=== PATIENT | female | born 1995 | race Caucasian/White ===

== ENCOUNTER 2020-01-18 13:27 | Emergency (ER) | payer OTHER, SELFPAY ==
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
[2020-01-18 13:32] VITALS: BP 122/73; PULSE 87; RESP 18; TEMP 36.6; O2SAT 100
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
[2020-01-18] MEDS: KETOROLAC (*BKC) 60 MG/2 ML VIAL IM (15:36)
[2020-01-18] MEDS: predniSONE 20 MG TABLET 60 MG PO (15:40)
== END 2020-01-18 16:30 | disposition home or self-care (01) ==
PROVIDERS: Emergency Provider General Practice
DX: S16.1XXA Strain of muscle, fascia and tendon at neck level, initial encounter (principal); S29.012A Strain of muscle and tendon of back wall of thorax, initial encounter; S39.012A Strain of muscle, fascia and tendon of lower back, initial encounter; F41.9 Anxiety disorder, unspecified; F32.9 Major depressive disorder, single episode, unspecified; Z87.442 Personal history of urinary calculi; V49.40XA Driver injured in collision with unspecified motor vehicles in traffic accident, initial encounter
CPT/HCPCS: 71046; 72110; 72125; 96372; 99284; J1885; J7512

== ENCOUNTER 2021-05-11 19:09 | Emergency (ER) | payer OTHER, SELFPAY ==
[2021-05-11 19:14] VITALS: BP 125/85; PULSE 60; RESP 20; TEMP 36.8; O2SAT 100
[2021-05-11 19:28] LABS: Basophils Absolute Auto 0.1 K/mm3 (0.0-0.1); Basophils Percent Auto 0.5 % (0.2-1.2); Hematocrit 42.2 % (37.0-47.0); Hemoglobin 14.7 g/dL (12.0-15.0); Immature Granulocyte Absolute 0.03 K/mm3 (0.00-0.031); Immature Granulocyte Percent A 0.3 % (0-0.5); Lymphocytes Absolute Auto 0.84 K/mm3 (0.9-3.2); Lymphocytes Percent Auto 8.1 % (18.3-44.2); Mean Corpuscular HGB Conc 34.8 g/dl (32-36); Mean Corpuscular Hemoglobin 31.7 pg (26-34); Mean Corpuscular Volume 91.1 fl (80-100); Mean Platelet Volume 10.7 fl (7.4-10.4); Monocytes Absolute Auto 0.3 K/mm3 (0.1-0.6); Monocytes Percent Auto 2.6 % (2.6-8.5); Neutrophils Absolute Auto 9.2 K/mm3 (1.3-6.7); Neutrophils Percent Auto 88.5 % (45.5-73.1); Platelet Count Result 289 k/mm3 (150-375); Red Blood Count 4.63 M/mm3 (4.2-5.4); Red Cell Distribution Width 13.1 % (11.5-14.5); White Blood Count 10.4 K/mm3 (4.5-10.0)
[2021-05-11 19:40] LABS: Alanine Aminotransferase 12 U/L (4-35); Albumin Level 4.7 g/dL (3.5-5.1); Alkaline Phosphatase 103 U/L (38-126); Anion Gap 11 mmol/L (8-16); Aspartate Amino Transferase 27 U/L (14-36); Bilirubin,Total 0.7 mg/dL (0.2-1.3); Blood Urea Nitrogen 11 mg/dL (7-17); Calcium 9.9 mg/dL (8.4-10.2); Carbon Dioxide 19 mmol/L (22-30); Chloride 107 mmol/L (98-107); Estimated CRCL calculation 96 ml/min; Estimated Glomerular Filt Rate > 60; Glucose 149 mg/dL (65-105); Lipase 87 U/L (23-300); Potassium 3.7 mmol/L (3.4-5.0); Sodium 137 mmol/L (137-145)
--- NOTE | 2021-05-11 20:10 | PC.NURSE ---
Pt. father up to triage stating I need to speak to a doctor PAO. RN asked individual if he needed to be seen by a doctor. Pt. father states No I need to talk to a doctor or nurse in private. RN informed pt. father that he is speaking with an RN. Pt. father then states My daughter is out in the waiting room slumped over, passed out in a chair and needs to be seen. I think she has been hanging with the wrong crowd. Pt. pulled back to triage bay and vitals were reassessed by triage tech. VS were within normal limits however, pt. was slower to respond but still acting appropriately during reassessment. Pt. able to walk to triage bay, and offer arm for BP.
[2021-05-11 20:12] VITALS: BP 138/82; PULSE 97; RESP 18; TEMP 36.4; O2SAT 100
--- NOTE | 2021-05-11 21:35 | PC.NURSE ---
Pt. amb to intake and informed children's ministries director that she is leaving. pt. states My dad is making me go. Pt. ambulated out of facility with steady gait, no obvious signs of distress, skin pink warm and dry.
== END 2021-05-11 21:52 | disposition left against medical advice (07) ==
PROVIDERS: Emergency Provider Emergency Medicine
DX: R11.2 Nausea with vomiting, unspecified (principal)
CPT/HCPCS: 36415; 80053; 83690; 85025; 99199

== ENCOUNTER 2021-05-13 20:04 | Observation (INO) | payer OTHER, SELFPAY ==
[2021-05-13] VITALS (17 sets, daily range): BP systolic 138–155; BP diastolic 72–100; PULSE 50–73; RESP 14–25; TEMP 36.7–36.8; O2SAT 93–100; BMI 18.7
--- NOTE | ~2021-05-13 | CT_ITS ---
EXAMINATION: CT abdomen pelvis w con DATE: 05/13/2021 21:32 INDICATION: Lower abdominal pain. Elevated lipase. TECHNIQUE: Computed tomography (CT) of the abdomen and pelvis was performed without intravenous contr ast. Automated exposure control and iterative reconstruction technique were employed. Exam dose: 175 .64 mGy-cm total exam DLP. COMPARISON: 11/04/2019 and 08/26/2017 CT abdomen pelvis examination FINDINGS: Normal heart size. No pericardial or pleural effusion. The lung bases are clear of infiltra te or consolidation. 6 mm hepatic cyst. The gallbladder is present. Normal splenic size. There is high density fluid and/or soft tissue fat infiltration along the posterior margin of the lef t hepatic lobe and medial gastric and pancreatic body and tail margins, suggesting pancreatitis. No splenic, pancreatic, adrenal or renal space occupying mass lesion is detected. No bile duct or pancreatic duct dilatation. No urinary tract calculus or hydroureteronephrosis. Normal caliber of the abdominal aorta. No intraperitoneal or retroperitoneal or pelvic mass lesion or adenopathy or ascites. Urinary bladder, uterus and adnexal areas are unremarkable. [No bowel obstruction. Normal appendix. No intraperitoneal free air.] IMPRESSION: Mild pancreatitis suggested Reviewed, dictated and finalized at Location A. Reviewed, dictated and finalized at location A. IMPRESSION: Mild pancreatitis suggested
[2021-05-13 20:22] LABS: Basophils Absolute Auto 0.1 K/mm3 (0.0-0.1); Basophils Percent Auto 0.6 % (0.2-1.2); Eosinophils Percent Auto 0.1 % (0-4.4); Hematocrit 51.4 % (37.0-47.0); Hemoglobin 17.2 g/dL (12.0-15.0); Immature Granulocyte Absolute 0.04 K/mm3 (0.00-0.031); Immature Granulocyte Percent A 0.4 % (0-0.5); Lymphocytes Absolute Auto 1.89 K/mm3 (0.9-3.2); Lymphocytes Percent Auto 17.5 % (18.3-44.2); Mean Corpuscular HGB Conc 33.5 g/dl (32-36); Mean Corpuscular Hemoglobin 31.6 pg (26-34); Mean Corpuscular Volume 94.3 fl (80-100); Mean Platelet Volume 10.7 fl (7.4-10.4); Monocytes Absolute Auto 0.8 K/mm3 (0.1-0.6); Monocytes Percent Auto 7.6 % (2.6-8.5); Neutrophils Percent Auto 73.8 % (45.5-73.1); Platelet Count Result 334 k/mm3 (150-375); Red Blood Count 5.45 M/mm3 (4.2-5.4); Red Cell Distribution Width 13.2 % (11.5-14.5); White Blood Count 10.8 K/mm3 (4.5-10.0)
--- NOTE | 2021-05-13 20:28 | PC.NURSE ---
Pt. showed up asking to be taken back to a room. RN notified Pt. that per hospital policy there is only one visitor allowed back with each patient and that the pt. has a support person with them at this time. Pt. states What not even dad can go back? RN informed pt. that due to policy trading visitors out is also not allowed and that the pt. and her support person were also notified of that. pt. left ED.
[2021-05-13 20:32] LABS: Alanine Aminotransferase 14 U/L (4-35); Albumin Level 5.2 g/dL (3.5-5.1); Alkaline Phosphatase 97 U/L (38-126); Anion Gap 12 mmol/L (8-16); Aspartate Amino Transferase 38 U/L (14-36); Bilirubin,Total 0.8 mg/dL (0.2-1.3); Blood Urea Nitrogen 14 mg/dL (7-17); Carbon Dioxide 29 mmol/L (22-30); Chloride 98 mmol/L (98-107); Estimated CRCL calculation 66 ml/min; Estimated Glomerular Filt Rate > 60; Glucose 103 mg/dL (65-105); Lipase 605 U/L (23-300); Potassium 3.7 mmol/L (3.4-5.0); Sodium 139 mmol/L (137-145)
[2021-05-13] MEDS: LACTATED RINGERS 1,000 ML 999 ML IV CONT ×2 (20:39)
[2021-05-13] MEDS: ONDANSETRON INJ 4 MG/2 ML VIAL IV PUSH (20:39)
[2021-05-13 21:30] LABS: Add Urine Microscopic? YES; Appearance Urine Clear (Clear); Bacteria Urine Trace /hpf; Bilirubin Urine Negative (Negative); Blood Urine Negative (Negative); Color Urine Yellow (Yellow); Glucose Urine UA Negative (Negative); Ketones Urine Trace mg/dL (Negative); Leukocyte Esterase Ur Negative LEU/UL (Negative); Mucus Urine Moderate /lpf; Nitrate Urine Negative (Negative); Protein Urine Negative (Negative); RBC Urine 0-2 /hpf (0-2); Specific Grav Ur 1.019 (1.001-1.035); Squamous Epithelial Cell Urine Few /hpf (Few); Urobilinogen Urine Negative mg/dL (<2.0); WBC Urine 0-3 /hpf
--- NOTE | 2021-05-13 21:32 | ED.NAVMDI ---
HPI - Nausea/Vomiting/Diarrhea General Chief complaint: Nausea/Vomiting/Diarrhea Stated complaint: N/V Time Seen by Provider: 05/13/21 20:07 Source: patient and RN notes reviewed Mode of arrival: ambulatory Limitations: no limitations History of Present Illness HPI Narrative: This is a 25 year old female who presents for evaluation of nausea, vomiting and abdominal pain. She reports she developed intractable nausea and vomiting 2 days ago. She states she can not keep anything down. She also reports lower abdominal pain that has been constant, and her pain start not long after her nausea. She is unsure of fever. She denies diarrhea, fever, urinary symptoms. She reports having similar symptoms 1 month ago but she did pursue evaluation at that point. Related Data Home Medications Medication Instructions Recorded Confirmed clonazepam 0.5 mg PO DAILY 11/04/19 05/13/21 alprazolam 0.25 mg PO PRN 05/13/21 05/13/21 clonazepam 1 mg PO DAILY 05/13/21 05/13/21 sertraline 150 mg PO DAILY 05/13/21 05/13/21 tizanidine 4 mg PO PRN 05/13/21 05/13/21 Allergies Allergy/AdvReac Type Severity Reaction Status Date / Time No Known Allergies Allergy Verified 05/13/21 23:54 Review of Systems Review of Systems: All systems reviewed & are unremarkable except as noted in HPI and below PMFSH Past Medical History Medical History (Updated 05/13/21 @ 22:32 by Richa Henderson MD) Anxiety Depression Kidney stone Surgical History Surgical History No significant past surgical history Family History Family History (Updated 05/13/21 @ 23:23 by Berkley Lujan, FRACISCO) Father Depression Anxiety Social History Social History Smoking status: Current some day smoker Alcohol intake: never Substance use: never Gender identity (if verbalized by the patient): Female Spiritual care concerns: No Exam Const: General: alert Nutritional Appearance: thin Orientation/consciousness: patient oriented x3 Resp: Effort & Inspection: normal respiratory effort and no retractions Auscultation: clear to auscultation bilaterally Cardio: Rate: regular rate Rhythm: regular rhythm Heart sounds: no murmurs GI: GI Palp: Yes Soft to palpation, No Tenderness to palpation present (GI) and No Guarding due to palpation present (GI) Auscultation: normal bowel sounds Skin: Rashes: no rashes Neuro: General: patient oriented x3, moves all extremities and CN's II-XI intact bilaterally Psych: Mental Status: mental status grossly normal Affect: normal affect Course Reevaluation(s) Reevaluation #1: I have discussed with patient that she has been found to have pancreatitis. She denies recent alcohol use. She understands she will be admitted. Date: 05/13/21 Time: 22:30 Consultations Consultation #1: Dr. mcmillan accepts patient to hospitalist service for acute pancreatitis. Date: 05/13/21 Time: 22:31 Vital Signs Vital signs: Vital Signs Temperature 98.1 F 05/13/21 20:07 Pulse Rate 50 L 05/13/21 20:07 Respiratory Rate 18 05/13/21 20:07 Blood Pressure 138/92 H 05/13/21 20:07 Pulse Oximetry 99 05/13/21 20:07 Temperature 98.2 F 05/13/21 23:20 Pulse Rate 53 L 05/13/21 23:20 Respiratory Rate 16 05/13/21 23:20 Blood Pressure 145/89 H 05/13/21 23:20 Pulse Oximetry 100 05/13/21 23:20 MDM - Nausea/Vomiting/Diarrhea Medical Records Attestation: I reviewed the patient's medical records. Lab Data Attestation: I reviewed the patient's lab results. Result diagrams: 05/13/21 20:17 05/13/21 20:17 Labs: Lab Results 05/13/21 05/13/21 05/13/21 Range/Units 20:17 20:17 21:15 WBC 10.8 H (4.5-10.0) K/mm3 RBC 5.45 H (4.2-5.4) M/mm3 Hgb 17.2 H (12.0-15.0) g/dL Hct 51.4 H (37.0-47.0) % MCV 94.3 (80-100) fl MCH 31.6 (26-34) pg MCHC 33.5
[2021-05-13 21:41] LABS: Amphetamine Screen Urine Negative (Negative); Barbiturate Screen Urine Negative (Negative); Benzodiazepines Screen Urine Positive (Negative); Cannabinoid Screen Urine Positive (Negative); Cocaine Screen Urine Negative (Negative); Methadone Screen Urine Negative (Negative); Opiate Screen Urine Negative (Negative); Phencyclidine Screen Urine Negative (Negative)
--- NOTE | 2021-05-13 23:57 | ADMGEN ---
This patient, oTyin Tian, was admitted to Medical Room 347-. Patient/family oriented to hospital policies and general routines including ID bracelet, bed and alarms, visiting hours, pain management, procedures, bathroom and other care routines, personal items, smoking policy, room service/diet, and visiting hours. Information on how to activate the Rapid Response Team has been discussed. Patient/Family are encouraged to report perceived risks to care and to ask questions if they do not understand what they are told or what they should do.
[2021-05-14] MEDS: SODIUM CHLORIDE 0.9% IV 1,000 ML 150 ML IV CONT ×4 (00:21→20:17)
[2021-05-14] MEDS: ONDANSETRON INJ 4 MG/2 ML VIAL IV PUSH ×3 (02:40→12:04)
[2021-05-14] MEDS: MORPHINE SULFATE (*CRX) 4 MG/ML INJ 2 MG IV PUSH ×4 (03:20→21:03)
[2021-05-14 05:56] VITALS: BP 100/60; PULSE 70; RESP 16; TEMP 36.2; O2SAT 100
[2021-05-14 06:04] LABS: Basophils Percent Auto 0.5 % (0.2-1.2); Eosinophils Percent Auto 0.3 % (0-4.4); Hematocrit 40.4 % (37.0-47.0); Hemoglobin 13.6 g/dL (12.0-15.0); Immature Granulocyte Absolute 0.02 K/mm3 (0.00-0.031); Immature Granulocyte Percent A 0.3 % (0-0.5); Lymphocytes Absolute Auto 2.09 K/mm3 (0.9-3.2); Lymphocytes Percent Auto 27.5 % (18.3-44.2); Mean Corpuscular HGB Conc 33.7 g/dl (32-36); Mean Corpuscular Hemoglobin 31.6 pg (26-34); Mean Platelet Volume 10.7 fl (7.4-10.4); Monocytes Absolute Auto 0.6 K/mm3 (0.1-0.6); Monocytes Percent Auto 8.4 % (2.6-8.5); Neutrophils Absolute Auto 4.8 K/mm3 (1.3-6.7); Platelet Count Result 235 k/mm3 (150-375); Red Cell Distribution Width 12.9 % (11.5-14.5); White Blood Count 7.6 K/mm3 (4.5-10.0)
[2021-05-14 06:33] LABS: Alanine Aminotransferase 9 U/L (4-35); Albumin Level 3.6 g/dL (3.5-5.1); Alkaline Phosphatase 66 U/L (38-126); Anion Gap 5 mmol/L (8-16); Aspartate Amino Transferase 17 U/L (14-36); Bilirubin,Total 0.8 mg/dL (0.2-1.3); Blood Urea Nitrogen 9 mg/dL (7-17); Calcium 8.8 mg/dL (8.4-10.2); Carbon Dioxide 26 mmol/L (22-30); Chloride 106 mmol/L (98-107); Estimated CRCL calculation 80 ml/min; Estimated Glomerular Filt Rate > 60; Glucose 89 mg/dL (65-105); Lipase 86 U/L (23-300); Potassium 3.6 mmol/L (3.4-5.0); Sodium 137 mmol/L (137-145)
[2021-05-14] MEDS: FAMOTIDINE 20 MG/2 ML VIAL IV PUSH ×2 (09:57→20:11)
[2021-05-14] MEDS: SERTRALINE HCL 50 MG TABLET 150 MG PO (10:37)
[2021-05-14 11:31] VITALS: BMI 18.7
[2021-05-14] MEDS: clonazePAM (*CRX) 0.5 MG TABLET PO (12:25)
--- NOTE | 2021-05-14 12:30 | PM.IMHP ---
H&P: HPI History of Present Illness Date/Time: 05/14/21 12:00 Chief Complaint: Intractable vomiting Narrative: 05/14/21 1200 The supervising physician for this history and physical is Dr Golden. Toyin Tian is a 25yo F with history of anxiety and depression who presented to the ED for evaluation of intractable nausea, vomiting, and abdominal pain that began two days ago. She describes she is not able to keep any food or drink down. She describes a similar episode 1 month ago that lasted about 1 week when she was barely able to eat. She notes she has actually had around 4 similar episodes since December this year and in fact has unintentionally lost around 35 pounds in the last 5 months. She denies diarrhea or constipation. Her abdominal pain is constant and diffuse through the left side of her abdomen over to the right and towards her back. Worse with eating. CT abdomen/pelvis shows evidence of mild pancreatitis without other etiology to explain her symptoms. Lipase on arrival was elevated to 605, now improved to 86 this morning. Mild leukocytosis on arrival now resolved. She was admitted to the hospitalist service under observation status for further management of acute pancreatitis. So far she has been NPO overnight and has tried some clear liquids but had abdominal pain and nausea after trying just some soup broth. Vomited once this morning. She continues with constant abdominal pain at present. Review of Systems Review of Systems: All systems reviewed & are unremarkable except as noted in HPI and below PMFSH Past Medical History Medical History (Updated 05/14/21 @ 17:19 by Violeta Lindsay PA-C) Anxiety Depression Kidney stone Surgical History Surgical History No significant past surgical history Family History Family History (Updated 05/14/21 @ 17:11 by Violeta Lindsay PA-C) Father Depression Anxiety Grandparent Chronic diastolic CHF (congestive heart failure) End-stage renal disease on hemodialysis Social History Social History (Updated 05/14/21 @ 17:14 by Violeta Lindsay PA-C) Social History: Toyin lives at home by herself in [place]. 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 She reports occasional alcohol use around 1 drink per week or less. She smokes marijuana around 4 days per week regularly since the 7th grade. Denies other substance use. Her primary care provider is Dr. Phillip in [place], [place]. She designates her sister, Vanessa Tian, as her surrogate decision maker. Full code status. Smoking status: Current some day smoker Alcohol intake: current Drinks per week: 1 Substance use: current Substance use type: marijuana Other substance usage details: Smokes marijuana 4 days per week regularly since the 7th grade Living arrangements: alone Gender identity (if verbalized by the patient): Female Spiritual care concerns: No Meds Home Medications and Allergies Home Medications Medication Instructions Recorded Confirmed Type clonazepam 0.5 mg PO BID 11/04/19 05/14/21 History alprazolam 0.25 mg PO PRN 05/13/21 05/13/21 History clonazepam 1 mg PO DAILY 05/13/21 05/13/21 History sertraline 150 mg PO DAILY 05/13/21 05/13/21 History tizanidine 4 mg PO PRN 05/13/21 05/13/21 History Allergies Allergy/AdvReac Type Severity Reaction Status Date / Time No Known Allergies Allergy Verified 05/13/21 23:54 Vital Signs Last Vital Signs Temp 97.1 F L 05/14/21 14:00 Pulse 61 05/14/21 14:00 Resp 16 05/14/21 14:00 BP 103/58 L 05/14/21 14:00 Pulse Ox 100 05/14/21 14:00 Exam Narrative: Exam Narrative: General: Well-developed thin female resting supine in bed in no acute distress. HEENT: Normocephalic, atraumatic, EOMI, oropharynx clear without erythema or exudate. Neck: Supple. Chest: Lungs clear to auscultation all guevara. Respirations vida
[2021-05-14 14:00] VITALS: BP 103/58; PULSE 61; RESP 16; TEMP 36.2; O2SAT 100
[2021-05-14 20:00] VITALS: PULSE 63; RESP 18; O2SAT 100
[2021-05-14 20:15] VITALS: BP 108/65; PULSE 63; RESP 18; TEMP 36.6; O2SAT 100
[2021-05-14 20:28] VITALS: O2SAT 99
[2021-05-14] MEDS: HYDROcodone/acetaminophen (*CRX) 5-325 MG TABLET 1 TAB PO (22:39)
[2021-05-15 05:03] VITALS: BP 100/55; PULSE 54; RESP 18; TEMP 36.2; O2SAT 100
[2021-05-15] MEDS: MORPHINE SULFATE (*CRX) 4 MG/ML INJ 2 MG IV PUSH (05:15)
[2021-05-15] MEDS: SODIUM CHLORIDE 0.9% IV 1,000 ML 150 ML IV CONT ×2 (05:15→11:59)
[2021-05-15 06:20] LABS: Hematocrit 35.9 % (37.0-47.0); Hemoglobin 12.1 g/dL (12.0-15.0); Mean Corpuscular HGB Conc 33.7 g/dl (32-36); Mean Corpuscular Hemoglobin 31.8 pg (26-34); Mean Corpuscular Volume 94.2 fl (80-100); Mean Platelet Volume 10.9 fl (7.4-10.4); Platelet Count Result 182 k/mm3 (150-375); Red Blood Count 3.81 M/mm3 (4.2-5.4); Red Cell Distribution Width 12.8 % (11.5-14.5); White Blood Count 5.3 K/mm3 (4.5-10.0)
[2021-05-15 06:44] LABS: Anion Gap 6 mmol/L (8-16); Blood Urea Nitrogen 7 mg/dL (7-17); Calcium 8.7 mg/dL (8.4-10.2); Carbon Dioxide 25 mmol/L (22-30); Chloride 108 mmol/L (98-107); Estimated CRCL calculation 91 ml/min; Estimated Glomerular Filt Rate > 60; Glucose 87 mg/dL (65-105); Magnesium 1.8 mg/dL (1.6-2.3); Potassium 3.7 mmol/L (3.4-5.0); Sodium 139 mmol/L (137-145)
[2021-05-15] MEDS: SERTRALINE HCL 50 MG TABLET 150 MG PO (09:42)
[2021-05-15] MEDS: clonazePAM (*CRX) 0.5 MG TABLET PO (09:42)
[2021-05-15] MEDS: FAMOTIDINE 20 MG/2 ML VIAL IV PUSH (09:42)
[2021-05-15] MEDS: HYDROcodone/acetaminophen (*CRX) 5-325 MG TABLET 1 TAB PO (11:57)
[2021-05-15 14:00] VITALS: BP 105/57; PULSE 96; RESP 16; TEMP 36.3; O2SAT 92
--- NOTE | 2021-05-15 15:48 | PM.DS ---
DS: Admitting Diagnosis Admitting Diagnosis Admitting Diagnosis: Pancreatitis DS: Discharge Diagnosis Discharge Diagnosis (1) Acute pancreatitis: Code(s): K85.90 - Acute pancreatitis without necrosis or infection, unspecified Status: Acute Assessment and Plan: Date of Admission 05/13/21 Date of Discharge 05/15/21 Ms. Tian is a 25yo F with history of depression, anxiety, and regular marijuana use who presented to the ED for evaluation of abdominal pain. She describes diffuse abdominal pain, nausea, vomiting for 2 days prior to arrival. She describes at least 4 similar episodes since December this year. Minimal alcohol use. CT suggests evidence of a mild pancreatitis. Lipase elevated to 605 on arrival, resolved to normal the following day. She was treated with supportive care to include bowel rest, IV hydration, antiemetics and pain control. Her pain was improved and she was hemodynamically stable for discharge 05/15/21. Discussed she may benefit from outpatient GI follow up given her duration of symptoms and recent unintentional weight loss. (2) Marijuana use: Code(s): F12.90 - Cannabis use, unspecified, uncomplicated Status: Acute Assessment and Plan: Patient describes he has smoked marijuana regularly at least 4 days per week since the 7th grade. Cessation encouraged as this could be contributing to cyclic vomiting episodes. She describes she would like to try quitting to see if this improves her symptoms. (3) Intractable vomiting with nausea: Code(s): R11.2 - Nausea with vomiting, unspecified Status: Acute Assessment and Plan: Contributing factors could include acute pancreatitis and/or cyclic vomiting. I have educated her regarding possible cannabis hyperemesis syndrome as well. Continue supportive care, see above. (4) Weight loss: Code(s): R63.4 - Abnormal weight loss Status: Acute Assessment and Plan: She describes an unintentional 35 lb weight loss in the last 5 months. This may be related to episodes described above, however I encouraged her to follow-up with a bus or truck garage mechanic on an outpatient basis in case she may benefit from an EGD. DS: Summary Hospital Course Hospital Course: See above Time Spent with Patient Time attestation: Total time spent providing and/or coordinating discharge services:35 minutes Exam Narrative: Exam Narrative: General: Well-developed thin female resting supine in bed in no acute distress. HEENT: Normocephalic, atraumatic, EOMI, oropharynx clear without erythema or exudate. Neck: Supple. Chest: Lungs clear to auscultation all guevara. Respirations even and nonlabored. Tolerating room air. Heart: Heart rate and rhythm regular with S1-S2. No murmur, rub, or gallop appreciated. Abdomen: Soft, nondistended, bowel sounds present. Diffuse tenderness to 4 quadrants without guarding. Skin: Warm, dry, no rashes or lesions noted. Tattoos to upper extremities. Extremities: Peripheral pulses intact. No edema, pain to palpation. Neurologic: Awake and alert; Answering questions appropriately. Speech is clear. No focal neurological deficits are noted. Psychiatric: Mood are normal. Pleasant and cooperative. DS: Data Data Completed and Pending Labs on day of discharge: Last Vital Signs Temp 97.4 F L 05/15/21 14:00 Pulse 96 05/15/21 14:00 Resp 16 05/15/21 14:00 BP 105/57 L 05/15/21 14:00 Pulse Ox 92 05/15/21 14:00 ITS Impressions Abdomen/Pelvis CT 05/13/21 21:54 IMPRESSION: Mild pancreatitis suggested Laboratory Tests 05/15/21 06:07 05/15/21 06:07 Discharge Plan Discharge Attending physician on discharge: Sanket Golden Consulting providers: Violeat Lindsay ; Linus Agarwal
== END 2021-05-15 15:51 | disposition home or self-care (01) ==
LOC: ANHED 22:32 → ANH3MED 22:44
PROVIDERS: Physician Assistant; Admitting Provider Internal Medicine; Emergency Provider General Practice; PCP Internal Medicine; Visit Provider Internal Medicine
DX: K85.90 Acute pancreatitis without necrosis or infection, unspecified (principal); F41.9 Anxiety disorder, unspecified; F32.9 Major depressive disorder, single episode, unspecified; Z87.442 Personal history of urinary calculi; F12.90 Cannabis use, unspecified, uncomplicated; R63.4 Abnormal weight loss
CPT/HCPCS: 36415; 74177; 80048; 80053; 80307; 81001; 81025; 83690; 83735; 84443; 85025; 85027; 96361; 96374; 96375; 96376; 99285; A9270; G0378; J0131; J2270; J2405; J7030; J7120; Q9967

== ENCOUNTER 2021-05-26 16:01 | Outpatient (CLI) | payer OTHER, SELFPAY ==
--- NOTE | ~2021-05-26 | US_ITS ---
EXAMINATION: US right upper quadrant DATE: 05/26/2021 16:20 INDICATION: Abdominal pain. TECHNIQUE: Multiple grayscale and Doppler ultrasound images of the abdomen were obtained. COMPARISON: CT abdomen and pelvis 05/13/2021 FINDINGS: Abdominal aorta is normal in caliber. Inferior vena cava is normal. The visualized portions of the head, body, and tail of the pancreas are normal. The liver is normal without focal lesion. Th ere is normal flow in main portal vein. The gallbladder is normal in size. No gallstones or gallbladd er wall thickening. There was no sonographic Carson sign. The common duct is normal and measures 4 mm . Right kidney is normal. IMPRESSION: 1. Normal right upper quadrant ultrasound. Reviewed, dictated and finalized at location A.
== END 2021-05-26 16:02 ==
DX: R10.9 Unspecified abdominal pain (principal)
CPT/HCPCS: 76705

== ENCOUNTER 2022-06-21 15:10 | Outpatient (CLI) | payer OTHER, SELFPAY ==
--- NOTE | ~2022-06-21 | US_ITS ---
EXAMINATION: US OB <=14 wk fetus w TV INDICATION: SPOTTING FIRST TRIMESTER TECHNIQUE: Sonography of the pelvis was performed by transabdominal and transvaginal techniques. COMPARISON: None. RESULT: LMP unknown. Uterus: - Orientation: Anteverted - Size: 10.4 x 6.1 x 6.1 cm - Myometrium: Homogeneous echogenicity. Cervical length 3.1 cm. Gestation: - Intrauterine gestational sac: Single present - Yolk sac: Present, not directly measured. - Embryo: Single present - [place] rump length: 0.9561 cm, corresponding gestational age 7 weeks, 0 days -Gestational heart rate: present 142 bpm -Subgestational hematoma: Absent Right ovary: - Size : 2.9 x 3.2 x 2.5 cm - Normal sonographic appearance with physiologic follicles. 1.6 cm simple cyst or dominant foll icle. Left ovary: - Size: 2.3 x 1.6 x 2.2 cm - Normal sonographic appearance with physiologic follicles. Pelvis free fluid: None. IMPRESSION: Single, live intrauterine gestation. Estimated Gestational Age: 7 weeks, 0 days by crown rump length. JAMES by ultrasound 02/07/2023. Reviewed, dictated and finalized at location K. IMPRESSION: Single, live intrauterine gestation. Estimated Gestational Age: 7 weeks, 0 days by crown rump length. JAMES by ultras ound 02/07/2023.
== END 2022-06-21 15:11 | disposition home or self-care (01) ==
PROVIDERS: Visit Provider Obstetrics & Gynecology Gynecology
DX: O26.851 Spotting complicating pregnancy, first trimester (principal); Z3A.01 Less than 8 weeks gestation of pregnancy
CPT/HCPCS: 76801; 76817

== ENCOUNTER 2022-09-15 14:56 | Outpatient (CLI) | payer OTHER, SELFPAY ==
--- NOTE | ~2022-09-15 | US_ITS ---
EXAMINATION: US OB /maternal detail DATE: 09/15/2022 16:26 INDICATION: anatomic survey. TECHNIQUE: Real-time ultrasound of the pelvis was performed. COMPARISON: Ultrasound 06/21/2022 FINDINGS: There is a single living fetus in variable presentation. The placenta is anterior. heart rate is 151 beats per minute (bpm). The amniotic fluid volume is subjectively normal. The following biometric data were obtained: Biparietal diameter (BPD): 4.4 cm; head circumference (HC): 16.6 cm; abdominal circumference (AC): 15 .4 cm; femur length (FL): 3.2 cm. These measurements are concordant. Estimated weight is 336 g +/- 50 g, which correlates with the 90th percentile when 02/07/23 is u sed as estimated date of delivery. As single measurements, these parameters are each equal to the following estimated gestational ages: BPD: 19 weeks 2 days. HC: 19 weeks 2 days. AC: 20 weeks 4 days. FL: 20 weeks 0 days. estimated gestational age based solely on measurements from this exam is 19 weeks 6 days +/- 1 weeks 3 days. The cerebral ventricles, cerebellum, cisterna magna, nuchal fold, lip, and visualized portions of the spine are normal. The nasal bone measures 6 mm. There is an echogenic focus in left ventricle of the heart. The diaphragm, stomach, kidneys, and bladder are normal. There are two umbilical arteries to yield a 3-vessel cord. The cord insertion is normal. IMPRESSION: 1. Single living fetus in variable presentation. 2. Estimated weight is 336 g +/- 50 g, which correlates with the 90th percentile when 02/07/23 is used as estimated date of delivery. This date was set by ultrasound on 06/21/22. 3. Intracardiac echogenic focus. Reviewed, dictated and finalized at location A. IMPRESSION: 1. Single living fetus in variable presentation. 2. Estimated weight is 336 g +/- 50 g, which correlates with the 90th pe rcentile when 02/07/23 is used as estimated date of delivery. This date was set by ultrasound on 06/21/22. 3. Intracardiac echogenic focus.
== END 2022-09-15 14:57 | disposition home or self-care (01) ==
LOC: ANHIMG 15:01
PROVIDERS: Visit Provider Advanced Practice Midwife
DX: Z36.9 Encounter for antenatal screening, unspecified (principal); Z3A.19 19 weeks gestation of pregnancy
CPT/HCPCS: 76805

== ENCOUNTER 2022-11-21 16:22 | Emergency (ER) | payer OTHER, SELFPAY ==
[2022-11-21 16:32] VITALS: BP 109/69; PULSE 93; RESP 18; TEMP 36.6; O2SAT 98
--- NOTE | 2022-11-21 17:28 | ED.URI ---
HPI - URI/Sore Throat General Chief Complaint: Upper Respiratory Infection Stated Complaint: cough, 29 weeks , dehydrated, weak Time Seen by Provider: 11/21/22 17:15 History of Present Illness HPI Narrative: Pt presents with fever, cough and body aches for 4 days. Pt has mild JIMÉNEZ. Pt has not been vomiting and has no abdominal pain. Pt is 27 weeks and has OB. Pt denies bleeding or discharge. Related Data Home Medications Medication Instructions Recorded Confirmed clonazepam 0.5 mg tablet 0.5 mg PO BID 11/04/19 05/14/21 alprazolam 0.25 mg tablet 0.25 mg PO PRN 05/13/21 05/13/21 clonazepam 0.5 mg tablet 1 mg PO DAILY 05/13/21 05/13/21 sertraline 100 mg tablet 150 mg PO DAILY 05/13/21 05/13/21 tizanidine 4 mg tablet 4 mg PO PRN 05/13/21 05/13/21 Allergies Allergy/AdvReac Type Severity Reaction Status Date / Time No Known Allergies Allergy Verified 11/21/22 17:06 Review of Systems Review of Systems: All systems reviewed & are unremarkable except as noted in HPI and below PMFSH Past Medical History Medical History (Updated 11/21/22 @ 17:42 by Yane Brown III, DO) Anxiety Depression Kidney stone Surgical History Surgical History No significant past surgical history Family History Family History (Updated 05/14/21 @ 17:11 by Violeta Lindsay PA-C) Father Depression Anxiety Grandparent Chronic diastolic CHF (congestive heart failure) End-stage renal disease on hemodialysis Social History Social History (Updated 05/14/21 @ 17:14 by Violeta Lindsay PA-C) Social History: Toyin lives at home by herself in [place]. 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 She reports occasional alcohol use around 1 drink per week or less. She smokes marijuana around 4 days per week regularly since the 7th grade. Denies other substance use. Her primary care provider is Dr. Phillip in [place], [place]. She designates her sister, Vanessa Tian, as her surrogate decision maker. Full code status. Smoking status: Current some day smoker Alcohol intake: current Drinks per week: 1 Substance use: current Substance use type: marijuana Other substance usage details: Smokes marijuana 4 days per week regularly since the 7th grade Gender identity (if verbalized by the patient): Female Spiritual care concerns: No Exam Const: General: healthy appearing Nutritional Appearance: well nourished Orientation/consciousness: patient oriented x3 Limitations: no limitations Course Vital Signs Vital signs: Vital Signs Temperature 97.8 F 11/21/22 16:32 Pulse Rate 93 11/21/22 16:32 Respiratory Rate 18 11/21/22 16:32 Blood Pressure 109/69 11/21/22 16:32 Pulse Oximetry 98 11/21/22 16:32 Oxygen Delivery Room Air 11/21/22 16:32 Temperature 97.8 F 11/21/22 16:32 Pulse Rate 93 11/21/22 16:32 Respiratory Rate 18 11/21/22 16:32 Blood Pressure 109/69 11/21/22 16:32 Pulse Oximetry 98 11/21/22 16:32 Oxygen Delivery Room Air 11/21/22 16:32 MDM - URI/Sore Throat Lab Data Labs: Lab Results 11/21/22 Range/Units 16:47 Influenza A (RT-PCR) Positive (Negative) Influenza B (RT-PCR) Negative (Negative) SARS-CoV-2 RNA (RT-PCR) Negative Discharge Plan Discharge Clinical Impression: Influenza A Patient Disposition: Home, Self-Care Condition: Improved Instructions: Antibiotic Form, Influenza (ED) Prescriptions: No Action clonazepam 0.5 mg tablet 0.5 mg PO BID tizanidine 4 mg Tablet 4 mg PO PRN clonazepam 0.5 mg tablet 1 mg PO DAILY sertraline 100 mg tablet 150 mg PO DAILY alprazolam 0.25 mg Tablet 0.25 mg PO PRN ondansetron 4 mg tablet,disintegrating 4 mg PO Q8H PRN (Reason: nausea and vomiting) Qty: 30 0RF pantoprazole 40 mg tablet,delayed release (DR/EC) 40 mg PO DAILY 28
[2022-11-21 17:29] LABS: Influenza A QL RT-PCR Positive (Negative); Influenza B QL RT-PCR Negative (Negative); SARS-CoV-2 RNA PCR Negative
[2022-11-21] MEDS: SODIUM CHLORIDE 0.9% IV 1,000 ML 999 ML IV CONT (17:44)
[2022-11-21] MEDS: ACETAMINOPHEN 500 MG TABLET 1000 MG PO (17:51)
[2022-11-21 18:57] VITALS: BP 103/63; PULSE 82; RESP 16; TEMP 36.4; O2SAT 96
== END 2022-11-21 18:59 | disposition home or self-care (01) ==
PROVIDERS: Emergency Provider Emergency Medicine; PCP Obstetrics & Gynecology Gynecology
DX: J10.1 Influenza due to other identified influenza virus with other respiratory manifestations (principal); Z20.822 Contact with and (suspected) exposure to COVID-19; O99.342 Other mental disorders complicating pregnancy, second trimester; F41.9 Anxiety disorder, unspecified; F32.A Depression, unspecified; Z3A.27 27 weeks gestation of pregnancy; Z87.442 Personal history of urinary calculi
CPT/HCPCS: 87636; 96360; 99283; A9270; J7030

== ENCOUNTER 2022-12-02 12:44 | Outpatient (CLI) | payer OTHER, SELFPAY ==
[2022-12-02 19:58] LABS: Hematocrit 33.8 % (37.0-47.0); Hemoglobin 11.7 g/dL (12.0-15.0)
[2022-12-02 20:12] LABS: Glucose 1 Hour PP 50gm Dose 109 mg/dL
[2022-12-02 20:32] LABS: Vitamin D 25 Hydroxy 35.3 ng/mL
[2022-12-02 20:52] LABS: HIV 1/2 Ab P24 Ag Result Negative (Negative)
== END 2022-12-02 12:45 | disposition home or self-care (01) ==
LOC: ANHGOSHLAB 12:48
PROVIDERS: PCP Obstetrics & Gynecology Gynecology; Visit Provider Advanced Practice Midwife
DX: Z36.9 Encounter for antenatal screening, unspecified (principal); E55.9 Vitamin D deficiency, unspecified; Z3A.00 Weeks of gestation of pregnancy not specified
CPT/HCPCS: 36415; 82306; 82947; 85014; 85018; 86703; G0432

== ENCOUNTER 2023-01-28 08:25 | Inpatient (IN) | payer OTHER, SELFPAY ==
[2023-01-28] VITALS (170 sets, daily range): BP systolic 90–185; BP diastolic 44–164; PULSE 50–266; RESP 15–17; TEMP 36.3–37.3; O2SAT 81–100; BMI 29.3
[2023-01-28 10:20] LABS: Basophils Absolute Auto 0.1 K/mm3 (0.0-0.1); Basophils Percent Auto 0.4 % (0.2-1.2); Eosinophils Percent Auto 0.1 % (0-4.4); Hematocrit 39.5 % (37.0-47.0); Hemoglobin 13.8 g/dL (12.0-15.0); Immature Granulocyte Absolute 0.13 K/mm3 (0.00-0.031); Immature Granulocyte Percent A 0.9 % (0-0.5); Lymphocytes Absolute Auto 1.27 K/mm3 (0.9-3.2); Lymphocytes Percent Auto 9.1 % (18.3-44.2); Mean Corpuscular HGB Conc 34.9 g/dl (32-36); Mean Corpuscular Volume 94.5 fl (80-100); Mean Platelet Volume 11.4 fl (7.4-10.4); Monocytes Absolute Auto 1.1 K/mm3 (0.1-0.6); Monocytes Percent Auto 8.1 % (2.6-8.5); Neutrophils Absolute Auto 11.4 K/mm3 (1.3-6.7); Neutrophils Percent Auto 81.4 % (45.5-73.1); Platelet Count Result 176 k/mm3 (150-375); Red Blood Count 4.18 M/mm3 (4.2-5.4); Red Cell Distribution Width 12.9 % (11.5-14.5)
--- NOTE | 2023-01-28 10:26 | WPDHPUPDATE1 ---
History and Physical Update Update Date/Time: 01/28/23 10:26 27 yo at 38w4d who presents in labor. Pt reports regular painful contractions. She denies any vaginal bleeding or leakage of fluid. History and Physical has been reviewed, including an updated exam of the patient. There are NO changes in the patient's condition. Risks, benefits, and alternatives have been discussed and questions answered. Patient agrees to proceed with procedure. A/P: admit to L&D routine admission orders Rh+ GBS+, will start abx FHT cat 1, continuous EFM pt desires epidural expectant management will augment as needed.
[2023-01-28] MEDS: LACTATED RINGERS 1,000 ML 125 ML IV CONT ×3 (10:27→16:07)
[2023-01-28] MEDS: AMPICILLIN 2 GM/NS 100 ML 2 GM/100 ML BAG IVPB ×2 (10:27→20:26)
[2023-01-28] MEDS: ONDANSETRON INJ 4 MG/2 ML VIAL IV PUSH (10:34)
[2023-01-28] MEDS: fentaNYL CITRATE INJ (*CRX) 100 MCG/2 ML VIAL 50 MCG IV PUSH ×2 (10:37→11:37)
[2023-01-28 11:17] LABS: Amphetamine Screen Urine Negative (Negative); Barbiturate Screen Urine Positive (Negative); Benzodiazepines Screen Urine Negative (Negative); Cannabinoid Screen Urine Negative (Negative); Cocaine Screen Urine Negative (Negative); Methadone Screen Urine Negative (Negative); Opiate Screen Urine Negative (Negative); Phencyclidine Screen Urine Negative (Negative)
[2023-01-28] MEDS: LACTATED RINGERS 1,000 ML 999 ML IV CONT (11:27)
--- NOTE | 2023-01-28 11:38 | WPDANESEPP ---
Anes - Eval Pre Procedure Procedure: labor epidural Date/Time: 01/28/23 11:38 Preop Diagnosis: labor pain Pre Op Diagnosis: Contractions Patient Data Age: 27 Gender: F Height: 1.7 m Weight: 85 kg Last Vital Signs Pulse 75 01/28/23 11:31 BP 111/77 01/28/23 11:31 Allergies Allergy/AdvReac Type Severity Reaction Status Date / Time No Known Allergies Allergy Verified 01/24/23 09:08 Home Medications Medication Instructions Recorded Confirmed Type sertraline 50 mg tablet 50 mg PO DAILY #90 tabs 01/11/23 01/28/23 Rx buspirone 5 mg tablet 5 mg PO BID 01/13/23 01/24/23 History prenat.vits,jayne,kgg-jkmo-eznof 1 tablet PO HS 01/13/23 01/24/23 History jmkqamirip-ykkqupoloedaj-tpukehuz 1 cap PO Q8H PRN headache 01/17/23 01/28/23 History 50 mg-300 mg-40 mg capsule (Fioricet) ondansetron HCl 4 mg tablet 4 mg PO Q8H 01/17/23 01/28/23 History Laboratory Tests 01/28/23 01/28/23 01/28/23 10:11 10:11 10:11 WBC 14.0 K/mm3 H K/mm3 (4.5-10.0) RBC 4.18 M/mm3 L M/mm3 (4.2-5.4) Hgb 13.8 g/dL g/dL (12.0-15.0) Hct 39.5 % % (37.0-47.0) MCV 94.5 fl fl (80-100) MCH 33.0 pg pg (26-34) MCHC 34.9 g/dl g/dl (32-36) RDW 12.9 % % (11.5-14.5) Plt Count 176 k/mm3 k/mm3 (150-375) MPV 11.4 fl H fl (7.4-10.4) Immature Gran % (Auto) 0.9 % H % (0-0.5) Neut % (Auto) 81.4 % H % (45.5-73.1) Lymph % (Auto) 9.1 % L % (18.3-44.2) Gentry % (Auto) 8.1 % % (2.6-8.5) Eos % (Auto) 0.1 % % (0-4.4) Baso % (Auto) 0.4 % % (0.2-1.2) Lymph # (Auto) 1.27 K/mm3 K/mm3 (0.9-3.2) Gentry # (Auto) 1.1 K/mm3 H K/mm3 (0.1-0.6) Eos # (Auto) 0.0 K/mm3 K/mm3 (0-0.3) Baso # (Auto) 0.1 K/mm3 K/mm3 (0.0-0.1) Abs Immat Gran (auto) 0.13 K/mm3 H K/mm3 (0.00-0.031) Absolute Neuts (auto) 11.4 K/mm3 H K/mm3 (1.3-6.7) Absolute Nucleated RBC 0.0 K/mm3 K/mm3 (0.0-0.012) Nucleated RBC % 0.0 % % (0.0-0.2) Urine Opiates Screen Urine Methadone Screen Ur Barbiturates Screen Ur Phencyclidine Scrn Ur Amphetamine Screen U Benzodiazepines Scrn Urine Cocaine Screen U Cannabinoids Screen RPR Pending Blood Type O Positive Antibody Screen Negative 01/28/23 10:51 WBC RBC Hgb Hct MCV MCH MCHC RDW Plt Count MPV Immature Gran % (Auto) Neut % (Auto) Lymph % (Auto) Gentry % (Auto) Eos % (Auto) Baso % (Auto) Lymph # (Auto) Gentry # (Auto) Eos # (Auto) Baso # (Auto) Abs Immat Gran (auto) Absolute Neuts (auto) Absolute Nucleated RBC Nucleated RBC % Urine Opiates Screen Negative (Negative) Urine Methadone Screen Negative (Negative) Ur Barbiturates Screen Positive A (Negative) Ur Phencyclidine Scrn Negative (Negative) Ur Amphetamine Screen Negative (Negative) U Benzodiazepines Scrn Negative (Negative) Urine Cocaine Screen Negative (Negative) U Cannabinoids Screen Negative (Negative) RPR Blood Type Antibody Screen Patient hx anesthesia problems: none Family hx anesthesia problems: none Results Review: All pre-operative results and documents have been reviewed as part of the pre-operative evaluation. [facility] Past Medical History Medical History Anxiety Depression Kidney stone Surgical History Surgical History History of removal of skin mole (~2016) No significant past surgical history Family History Family History (R
[2023-01-28] MEDS: AMPICILLIN 1 GM/NS 50 ML 1 GM/50 ML BAG IVPB ×2 (14:03→18:06)
[2023-01-28] MEDS: OXYTOCIN 30 UNITS/NS 500 ML 30 UNITS/500 ML BAG IV CONT (14:14)
[2023-01-28] MEDS: FAMOTIDINE 20 MG/2 ML VIAL IV PUSH (14:45)
[2023-01-28] MEDS: SODIUM CHLORIDE 0.9% IV 300 ML 600 ML I-UTERINE (17:49)
--- NOTE | 2023-01-28 20:25 | PM.OBPRVD ---
OB - Delivery Note Procedure Delivery date: 01/28/23 Procedure: Patient pushed for a spontaneous vaginal delivery. The fetus was delivered atraumatically and placed on the maternal abdomen. The cord was clamped and cut after 1 minute of life. The cord was double clamped and cut and a segment of cord was collected for cord gases. Cord blood was collected for blood type and Coomb's testing. The placenta delivered with manual extraction. The perineum was inspected and there was a 1st degree perineal laceration. There were bilateral labial lacerations. The lacerations was repaired with 3-0 vicryl in the usual fashion. The uterus was firm and good hemostasis was noted. The patient and fetus were stable in the delivery room. Induction method: None Delivery augmentation: Pitocin Delivery monitor: External FHT Route of delivery: Episiotomy description: None Laceration Description: Perineal - 1st Degree and Labial (bilateral) Delivery repair: vicryl Specimen: No Quantitative Blood Loss (ml): 300 Anesthesia type: Epidural Disposition: Floor () Complications: No immediate complications Baby Date of : 01/28/23 Time of : 19:45 Weeks of gestation at delivery: 38 gender: Male Weight (pounds): 7 Weight (ounces): 15 presentation: vertex position: Right Occiput Anterior Placenta delivery description: Spontaneous Cord Vessel Description: 3 Vessels score one minute: 8 score five minutes: 8 AMG Delivery Billing Delivery Delivery: Delivery Charge
[2023-01-28] MEDS: OXYTOCIN 30 UNITS/NS 500 ML 30 UNITS/500 ML BAG 125 UNITS IV CONT (20:26)
[2023-01-28] MEDS: IBUPROFEN 600 MG TABLET PO (21:42)
[2023-01-28] MEDS: BENZOCAINE 20% AER SPR (*SP) 56 GM CAN 1 SPRAY TOPICAL (21:43)
[2023-01-28] MEDS: WITCH HAZEL 40 PADS 1 PAD TOPICAL (21:43)
[2023-01-28] MEDS: ACETAMINOPHEN 325 MG TABLET 650 MG PO (23:04)
--- NOTE | 2023-01-29 00:55 | OBPPTRN ---
01/28/2023 at 2223 Patient transferred to post room #288 via wheelchair. Support person present. Patient oriented to unit, room, information board, and admission packet. Patient verbalizes understanding.
[2023-01-29] MEDS: IBUPROFEN 600 MG TABLET PO ×4 (04:38→22:01)
[2023-01-29 05:18] LABS: Hematocrit 36.3 % (37.0-47.0); Hemoglobin 12.5 g/dL (12.0-15.0)
[2023-01-29 07:00] VITALS: BP 108/61; PULSE 77; RESP 16; TEMP 36.9; O2SAT 97
[2023-01-29] MEDS: ACETAMINOPHEN 325 MG TABLET 650 MG PO (07:16)
--- NOTE | 2023-01-29 08:41 | WPDANLDPN2 ---
Anes-Prog Note L&D Date/Time: 01/29/23 08:41 Neuro status: Neuro function grossly intact. Cardiovascular status: normal Respiratory status: normal Airway patency: baseline Mental status: baseline Post-Op hydration status: normal Vital Signs: Last Vital Signs Temp 36.9 C 01/29/23 07:00 Pulse 77 01/29/23 07:00 Resp 16 01/29/23 07:00 BP 108/61 01/29/23 07:00 Pulse Ox 97 01/29/23 07:00 O2 Del Method Room Air 01/29/23 07:00 Pain score (VAS): 0 I/O: Intake & Output 01/28/23 01/29/23 01/29/23 23:59 07:59 15:59 Intake Total 2150 Output Total 413 Balance 1737 Post-procedural complaints: none Patient feedback: Patient satisfied with anesthetic care.
[2023-01-29] MEDS: busPIRone HCL 5 MG TABLET PO ×2 (09:28→16:28)
[2023-01-29] MEDS: DOCUSATE SODIUM 100 MG CAPSULE PO ×2 (09:28→16:28)
[2023-01-29] MEDS: SERTRALINE HCL 50 MG TABLET PO (09:28)
--- NOTE | 2023-01-29 10:52 | P.PNOB_ITS ---
OB - PN: Subj Subjective Date/time seen: 01/29/23 10:52 Patient comments: no complaints, pain well controlled and tolerating diet [place] feeding status: exclusively breast feeding Narrative: patient doing well this AM. No complaints. Pain is well controlled. She reports minimal bleeding. She is ambulating and voiding without difficulty. She is tolerating PO. She denies N/V, fever, chills. OB - PN: Obj Data Labs 01/29/23 05:06 Labs: Laboratory Results - last 24 hr 01/28/23 01/28/23 01/29/23 10:11 10:51 05:06 Hgb 12.5 Hct 36.3 L Urine Opiates Screen Negative Urine Methadone Screen Negative Ur Barbiturates Screen Positive A Ur Phencyclidine Scrn Negative Ur Amphetamine Screen Negative U Benzodiazepines Scrn Negative Urine Cocaine Screen Negative U Cannabinoids Screen Negative Blood Type O Positive Antibody Screen Negative OB - PN A/P Plan day: 1 Plan: routine care Comments: patient doing well H/H stable plan for circumcision today. risks, benefits, alternatives discussed continue routine care Time Spent With Patient Time: Total time spent is greater than 50% in coordination of care (as documented) at patient's floor/unit and/or counseling patient: Time with patient: less than 15 minutes Review of Systems Review of Systems: All systems reviewed & are unremarkable except as noted in HPI and below Exam Const: General: comfortable and no acute distress Resp: Effort & Inspection: normal respiratory effort Cardio: Rate: regular rate GI: GI Palp: Yes Soft to palpation and No Tenderness to palpation present (GI) Auscultation: normal bowel sounds Other: fundus firm and below umbilicus. Psych: Affect: normal affect
[2023-01-29] MEDS: HYDROcodone/acetaminophen (*CRX) 5-325 MG TABLET 1 TAB PO ×3 (11:23→23:14)
[2023-01-29 16:40] VITALS: BP 111/66; PULSE 71; RESP 16; TEMP 36.6
--- NOTE | 2023-01-29 17:34 | PC.NURSE ---
All charting by Pankaj Quiñones RN on 01/29/23 [id number] was performed by Hoda Huerta RN. Computer log in displayed Cristhian YAP and was unnoticed.
[2023-01-29] MEDS: MULTIVIT/MIN/PREN/FOL AC/IRON TABLET 1 TAB PO (23:15)
[2023-01-30] MEDS: IBUPROFEN 600 MG TABLET PO ×3 (04:05→16:05)
[2023-01-30] MEDS: HYDROcodone/acetaminophen (*CRX) 5-325 MG TABLET 1 TAB PO ×2 (06:56→16:18)
--- NOTE | 2023-01-30 07:57 | PM.OBDSVD ---
DS: Admitting Diagnosis Discharge Date 01/30/23 Admitting Diagnosis intrauterine at term DS: Discharge Diagnosis Discharge Diagnosis (1) : Code(s): Z34.90 - Encounter for supervision of normal , unspecified, unspecified trimester Status: Acute OB - DS: Summary OB Procedures : None OB Procedures Intrapartum: Spontaneous Vag Delivery OB Procedures: : None Status at Discharge Functional status at discharge: independent ambulation Overall status at discharge: patient is back to baseline Time Spent with Patient Time attestation: Total time spent providing and/or coordinating discharge services: Time spent: Less than 30 minutes Exam Const: General: comfortable and no acute distress Resp: Effort & Inspection: normal respiratory effort Auscultation: clear to auscultation bilaterally Cardio: Rate: regular rate GI: GI Palp: Yes Soft to palpation Auscultation: normal bowel sounds Other: Fundus firm below umbilicus Psych: Appearance: grossly normal Mental Status: mental status grossly normal Affect: normal affect DS: Data Data Completed and Pending Pending studies at discharge: Pending at discharge 01/28/23 20:04 Surgical [PTH] Routine Discharge Plan Discharge Attending physician on discharge: Les Davila Discharging Clinician: Les Davila Patient Disposition: Home, Self-Care Activity: as tolerated and pelvic rest Diet: regular Patient Instructions: Antibiotic Form, Vaginal Delivery (DC) Stand Alone Forms: General Discharge Information Follow-up/Referrals: Atif Mota MD [Physician] - Discharge Medications: New acetaminophen [Mapap (acetaminophen)] 325 mg Tablet 650 mg PO Q6H PRN (Reason: Mild Pain (1-3)) Qty: 30 0RF ibuprofen 600 mg Tablet 600 mg PO Q6H PRN (Reason: Cramping) Qty: 30 0RF Continued ondansetron HCl 4 mg tablet 4 mg PO Q8H pinjgyegic-sedztpciagbkm-zbvw [Fioricet] 50-300-40 mg capsule 1 cap PO Q8H PRN (Reason: headache) buspirone [BuSpar] 5 mg Tablet 5 mg PO BID #2 Tablet 1 tablet PO HS sertraline 50 mg tablet 50 mg PO DAILY Qty: 90 0RF Date of admission: 01/28/23 08:25 Primary Care Provider: Tammie Venegas Admitting Provider: Atif Mota Attending physician on admission: Atif Mota
[2023-01-30 08:00] VITALS: BP 111/80; PULSE 66; RESP 16; TEMP 36.7; O2SAT 98
[2023-01-30 08:12] LABS: Rapid Plasma Reagin Non-Reactive (NonReactive)
[2023-01-30] MEDS: MULTIVIT/MIN/PREN/FOL AC/IRON TABLET 1 TAB PO (08:15)
[2023-01-30] MEDS: SERTRALINE HCL 50 MG TABLET PO (08:15)
[2023-01-30] MEDS: DOCUSATE SODIUM 100 MG CAPSULE PO ×2 (08:15→16:05)
[2023-01-30] MEDS: busPIRone HCL 5 MG TABLET PO ×2 (08:15→16:05)
[2023-01-30] MEDS: ACETAMINOPHEN 325 MG TABLET 650 MG PO (11:39)
--- NOTE | 2023-01-30 14:20 | PC.NURSE ---
[id number] Introductions were made, then consulted with patient to assess needs related to . Mother led the conversation with her?plans to feed?her infant with combination feeding and the?experience so far. Resources provided for inpatient and outpatient services with the feeding sheet, mom/baby guide and name written on the white board. Mother voiced understanding of information and will call if there is a request for assistance. Encouraged understanding of the benefits of skin to skin (demonstrating unwrapping infant and placing upright on her chest), stimulating with massage touch, changing positions to encourage wakefulness, how to watch for early feeding cues, responsive feeding, feeding on demand (aiming for 8-12 times in 24 hours, about every 2-3 hours), milk production, building/maintaining a milk supply, duration of feeding, signs of adequate intake/output, collection, storage of expressed milk and how to record on the feeding sheet. Breast pump provided before this A.M. due to ineffective . Discussed pumping more consistently every 3 hours (8 times in 24 hours) 1-2 times at night to protect the milk supply. Resources used to facilitate learning were used with the visual handouts, tool, mom and baby guide. Mother voiced understanding of skin to skin, stimulating with massage touch, responsive feedings, talking to to encourage if it has been 2.5-3 hours since the start of the last , to call if infant does not latch, or if there is discomfort with . Resources provided for inpatient/outpatient with business card, feeding sheet and the mom/baby guide. Parents voiced understanding of information, demonstrated learning and will call if there is a request for assistance. Reported to the primary RN.
[2023-01-30] MEDS: WITCH HAZEL 40 PADS 1 PAD TOPICAL (16:05)
--- NOTE | 2023-01-30 18:00 | PC.NURSE ---
Patient a no care bed, infant staying another night.
[2023-01-31 09:54] VITALS: BP 116/76; PULSE 86; RESP 20; TEMP 36.9; O2SAT 97
== END 2023-01-30 18:02 | disposition home or self-care (01) | DRG 541 ==
LOC: ANHLDR 10:25 → ANHOB2 01-29 00:19
PROVIDERS: Admitting Provider Student in an Organized Health Care Education/Training Program; PCP Obstetrics & Gynecology Gynecology; Visit Provider Obstetrics & Gynecology
DX: O99.824 Streptococcus B carrier state complicating childbirth (principal); O73.0 Retained placenta without hemorrhage; O77.0 Labor and delivery complicated by meconium in amniotic fluid; O70.0 First degree perineal laceration during delivery; Z3A.38 38 weeks gestation of pregnancy; Z37.0 Single live birth
CPT/HCPCS: 36415; 80307; 84112; 85014; 85018; 85025; 86592; 86850; 86900; 86901; 88307; A9270; J0290; J2405; J2590; J2795; J3010; J7030; J7120

== ENCOUNTER 2023-06-12 16:57 | Outpatient (CLI) | payer OTHER, SELFPAY ==
[2023-06-12 17:32] LABS: Hematocrit 36.4 % (37.0-47.0); Hemoglobin 12.5 g/dL (12.0-15.0); Mean Corpuscular HGB Conc 34.3 g/dl (32-36); Mean Corpuscular Hemoglobin 32.6 pg (26-34); Mean Corpuscular Volume 94.8 fl (80-100); Mean Platelet Volume 10.7 fl (7.4-10.4); Platelet Count Result 233 k/mm3 (150-375); Red Blood Count 3.84 M/mm3 (4.2-5.4); Red Cell Distribution Width 12.4 % (11.5-14.5); White Blood Count 5.4 K/mm3 (4.5-10.0)
[2023-06-12 17:43] LABS: Alanine Aminotransferase 17 U/L (6-35); Albumin Level 4.2 g/dL (3.5-5.1); Alkaline Phosphatase 61 U/L (38-126); Anion Gap 5 mmol/L (8-16); Aspartate Amino Transferase 24 U/L (14-36); Bilirubin,Total 0.3 mg/dL (0.2-1.3); Blood Urea Nitrogen 10 mg/dL (7-17); Calcium 8.8 mg/dL (8.4-10.2); Carbon Dioxide 29 mmol/L (22-30); Chloride 103 mmol/L (98-107); Estimated Glomerular Filt Rate > 60; Glucose 77 mg/dL (65-110); Potassium 3.8 mmol/L (3.4-5.0); Sodium 137 mmol/L (137-145)
[2023-06-12 18:12] LABS: Thyroid Stimulating Hormone 0.729 uIU/mL (0.465-4.680)
[2023-06-12 18:58] LABS: Free T4 Free Thyroxine 0.89 ng/mL (0.78-2.19)
[2023-06-16 06:41] LABS: Thyroid Peroxidase Antibodies <1 IU/mL (<9)
== END 2023-06-12 16:58 | disposition home or self-care (01) ==
LOC: ANHLAB 16:59
PROVIDERS: PCP Obstetrics & Gynecology Gynecology; Visit Provider Obstetrics & Gynecology
DX: R23.2 Flushing (principal); R53.83 Other fatigue
CPT/HCPCS: 36415; 80053; 84439; 84443; 84481; 85027; 86376

== ENCOUNTER 2023-09-23 07:45 | Outpatient (CLI) | payer OTHER, SELFPAY ==
--- NOTE | ~2023-09-23 | MR_ITS ---
EXAMINATION: MR cervical spine wo con DATE: 09/23/2023 08:18 INDICATION: Cervical radiculopathy TECHNIQUE: Magnetic resonance imaging (MRI) of the cervical spine was performed without intravenous c ontrast. Sequences included sagittal T2-weighted FSE, sagittal T2-weighted FS FSE, sagittal T1-weight ed FSE, axial MERGE and axial T2-weighted FSE. COMPARISON: None FINDINGS: Bone alignment is normal. Vertebral body heights are normal. Bone marrow signal intensity is normal . Mild disc height loss at C5-C6 with annular fissure and small central disc extrusion with disc mate rial extending 2 mm caudal to the level of the superior endplate of C6. Remaining disc heights are no rmal. Cord signal intensity is normal. Cervical soft tissues are unremarkable. The following disc lev els are specifically discussed: C2-C3: The disc does not extend beyond the endplate margin. There is no uncovertebral joint osteoarth ritis. There is minimal bilateral facet joint osteoarthritis. There is no neural foraminal stenosis. There is no central canal stenosis. C3-C4: The disc does not extend beyond the endplate margin. There is mild left uncovertebral joint os teoarthritis. There is mild bilateral facet joint osteoarthritis. There is no neural foraminal stenos is. There is no central canal stenosis. C4-C5: Disc is minimally bulging. There is mild right uncovertebral joint osteoarthritis. There is mi nimal bilateral facet joint osteoarthritis. There is no neural foraminal stenosis. There is no centra l canal stenosis. C5-C6: Very small central disc extrusion. There is minimal bilateral uncovertebral joint osteoarthrit is. There is mild left and minimal right facet joint osteoarthritis. There is no neural foraminal myranda nosis. There is minimal central canal stenosis. C6-C7: Disc is mildly bulging. There is mild bilateral uncovertebral joint osteoarthritis. There is m ild bilateral facet joint osteoarthritis. There is no neural foraminal stenosis. There is minimal belgica tral canal stenosis. C7-T1: The disc does not extend beyond the endplate margin. There is no uncovertebral joint osteoarth ritis. There is minimal bilateral facet joint osteoarthritis. There is no neural foraminal stenosis. There is no central canal stenosis. IMPRESSION: 1. Minimal to mild cervical spondylosis most notable for annular fissure and very small central disc extrusion at C5-C6. Reviewed, dictated and finalized at location A. IMPRESSION: 1. Minimal to mild cervical spondylosis most notable for annular fissure and ve ry small central disc extrusion at C5-C6.
== END 2023-09-23 07:46 | disposition home or self-care (01) ==
PROVIDERS: PCP Family Medicine; Visit Provider Physical Medicine & Rehabilitation Pain Medicine
DX: M43.02 Spondylolysis, cervical region (principal)
CPT/HCPCS: 72141

== ENCOUNTER 2023-11-29 17:25 | Outpatient (CLI) | payer OTHER, SELFPAY ==
[2023-11-29 17:44] LABS: Basophils Absolute Auto 0.1 K/mm3 (0.0-0.1); Basophils Percent Auto 1.2 % (0.2-1.2); Eosinophils Percent Auto 0.5 % (0-4.4); Hematocrit 39.9 % (37.0-47.0); Immature Granulocyte Absolute 0.01 K/mm3 (0.00-0.031); Immature Granulocyte Percent A 0.2 % (0-0.5); Lymphocytes Absolute Auto 2.01 K/mm3 (0.9-3.2); Lymphocytes Percent Auto 35.3 % (18.3-44.2); Mean Corpuscular HGB Conc 32.6 g/dl (32-36); Mean Corpuscular Hemoglobin 30.3 pg (26-34); Mean Platelet Volume 11.6 fl (7.4-10.4); Monocytes Absolute Auto 0.5 K/mm3 (0.1-0.6); Monocytes Percent Auto 8.3 % (2.6-8.5); Neutrophils Absolute Auto 3.1 K/mm3 (1.3-6.7); Neutrophils Percent Auto 54.5 % (45.5-73.1); Platelet Count Result 251 k/mm3 (150-375); Red Blood Count 4.29 M/mm3 (4.2-5.4); Red Cell Distribution Width 12.1 % (11.5-14.5); White Blood Count 5.7 K/mm3 (4.5-10.0)
[2023-11-29 21:19] LABS: Alanine Aminotransferase 15 U/L (6-35); Albumin Level 4.1 g/dL (3.5-5.1); Alkaline Phosphatase 75 U/L (38-126); Anion Gap 10 mmol/L (8-16); Aspartate Amino Transferase 23 U/L (14-36); Bilirubin,Total 0.3 mg/dL (0.2-1.3); Blood Urea Nitrogen 7 mg/dL (7-17); Calcium 9.2 mg/dL (8.4-10.2); Carbon Dioxide 25 mmol/L (22-30); Chloride 103 mmol/L (98-107); Estimated Glomerular Filt Rate > 60; Glucose 96 mg/dL (65-110); Sodium 138 mmol/L (137-145)
[2023-11-29 22:02] LABS: Free T4 Free Thyroxine 1.14 ng/mL (0.78-2.19)
[2023-12-01 03:24] LABS: FSH 3.4 mIU/mL (***)
[2023-12-02 01:50] LABS: Sex Hormone Binding Globulin 227 nmol/L (17-124); Thyroid Peroxidase Antibodies <1 IU/mL (<9)
[2023-12-02 08:33] LABS: Vitamin D 1,25 (OH)2 Total 75 pg/mL (18-72); Vitamin D2 1,25 (OH)2 <8 pg/mL; Vitamin D3 1,25 (OH)2 75 pg/mL
[2023-12-02 13:48] LABS: Testosterone Free 0.3 pg/mL (0.1-6.4); Testosterone Total 6 ng/dL (2-45)
[2023-12-07 22:22] LABS: Estradiol, Ultrasensitive 2 pg/mL
== END 2023-11-29 17:26 | disposition home or self-care (01) ==
LOC: ANHLAB 17:27
PROVIDERS: PCP Family Medicine; Visit Provider Obstetrics & Gynecology
DX: R53.83 Other fatigue (principal)
CPT/HCPCS: 36415; 80053; 82607; 82652; 82670; 83001; 84270; 84402; 84403; 84439; 84443; 85025; 86376

== ENCOUNTER 2024-08-01 11:19 | Outpatient (CLI) | payer OTHER, SELFPAY ==
[2024-08-01 13:56] LABS: Basophils Absolute Auto 0.1 K/mm3 (0.0-0.1); Basophils Percent Auto 0.7 % (0.2-1.2); Eosinophils Absolute Auto 0.1 K/mm3 (0-0.3); Eosinophils Percent Auto 1.1 % (0-4.4); Hemoglobin 13.2 g/dL (12.0-15.0); Immature Granulocyte Absolute 0.03 K/mm3 (0.00-0.031); Immature Granulocyte Percent A 0.3 % (0-0.5); Lymphocytes Absolute Auto 2.23 K/mm3 (0.9-3.2); Lymphocytes Percent Auto 19.3 % (18.3-44.2); Mean Corpuscular HGB Conc 32.2 g/dl (32-36); Mean Corpuscular Hemoglobin 29.7 pg (26-34); Mean Corpuscular Volume 92.3 fl (80-100); Monocytes Absolute Auto 0.8 K/mm3 (0.1-0.6); Monocytes Percent Auto 7.3 % (2.6-8.5); Neutrophils Absolute Auto 8.3 K/mm3 (1.3-6.7); Neutrophils Percent Auto 71.3 % (45.5-73.1); Platelet Count Result 255 k/mm3 (150-375); Red Blood Count 4.44 M/mm3 (4.2-5.4); Red Cell Distribution Width 14.5 % (11.5-14.5); White Blood Count 11.6 K/mm3 (4.5-10.0)
[2024-08-01 14:53] LABS: Alanine Aminotransferase 13 U/L (6-35); Albumin Level 4.3 g/dL (3.5-5.1); Alkaline Phosphatase 69 U/L (38-126); Amylase 78 U/L (30-110); Anion Gap 8 mmol/L (4-12); Aspartate Amino Transferase 58 U/L (14-36); Bilirubin,Total 0.5 mg/dL (0.2-1.3); Blood Urea Nitrogen 10 mg/dL (7-17); Calcium 8.8 mg/dL (8.4-10.2); Carbon Dioxide 28 mmol/L (22-30); Chloride 98 mmol/L (98-107); Estimated Glomerular Filt Rate > 60; Glucose 74 mg/dL (65-110); Lipase 68 U/L (23-300); Potassium 4.1 mmol/L (3.4-5.0); Sodium 134 mmol/L (137-145)
== END 2024-08-01 11:20 | disposition home or self-care (01) ==
LOC: ANHGOSHLAB 11:20
PROVIDERS: PCP Family Medicine; Visit Provider Obstetrics & Gynecology
DX: R10.12 Left upper quadrant pain (principal)
CPT/HCPCS: 36415; 80053; 82150; 83690; 85025

== ENCOUNTER 2024-10-07 21:22 | Emergency (ER) | payer OTHER, SELFPAY ==
[2024-10-07 21:25] VITALS: BP 113/72; PULSE 75; RESP 15; TEMP 36.3; O2SAT 100
[2024-10-07] MEDS: BELLADONNA ALK/PHENOB ELIX 10 ML, MAG HYDROX/ALUMINUM HYD/SIMETH 30 ML, LIDOCAINE HCL 2... PO (22:22)
[2024-10-07] MEDS: MORPHINE SULFATE (*CRX) 4 MG/ML INJ IV PUSH (22:26)
[2024-10-07] MEDS: KETOROLAC 15 MG/ML VIAL (*BKC) IV PUSH (22:27)
--- NOTE | 2024-10-07 22:35 | ED_ITS ---
HPI - Dental/Oral General Chief complaint: Dental/Oral Stated complaint: hand foot mouth Time Seen by Provider: 10/07/24 21:54 History of Present Illness HPI Narrative: 28-year-old female presents emergency department for decreased oral intake after being diagnosed with ilxq-lvha-flsaq 3 days ago. Patient states 4 days ago she began developing a rash sores in her mouth and throughout her arms, hand, thighs and lower abdomen. She went to urgent care 3 days ago was diagnosed with matta b-yfut-fkozq disease as well as thrush. She was prescribed oral nystatin and lidocaine as well as cephalexin for pharyngitis. States she was having difficulty switching the nystatin and lidocaine secondary to pain so she contacted her OBGYN who started her on fluconazole yesterday for the oral thr ush. Patient states she took the 1st dose yesterday and has not had much improvement. She states that she has been having difficulty keeping down food and fluids secondary to the pain and feels that she is becoming weak and dehydrated which is what brought her to the ED today. She is reporting pain throughout her mouth and lesions in her throat. Denies fever. Related Data Allergies Allergy/AdvReac Type Severity Reaction Status Date / Time No Known Allergies Allergy Verified 07/12/24 14:19 Review of Systems Review of Systems: All systems reviewed & are unremarkable except as noted in HPI and below PMFSH Past Medical History Medical History Anxiety Depression Kidney stone Migraine Seasonal allergies Surgical History Surgical History History of removal of skin mole (~2017) No significant past surgical history Family History Family History Father Depression Anxiety Alcoholism Grandparent Chronic diastolic CHF (congestive heart failure) End-stage renal disease on hemodialysis Grandparent Congestive heart failure Grandparent Renal disease Other Heart disease Hypertension Social History Social History Social History: Toyin lives at home by herself in [place]. 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 She reports occasional alcohol use around 1 drink per week or less. Denies other substance use. Her primary care provider is Dr. Phillip in [place], [place]. She designates her sister, Vanessa Tian, as her surrogate decision maker. Full code status. Smoking status: Never smoker Second hand tobacco smoke exposure: No Alcohol intake: current Alcohol use details: 1 drink per month Substance use: former Substance use type: does not use Other substance usage details: Smokes marijuana 4 days per week regularly since the 7th grade Lack of Transportation: No Lack of Food: Never True Current Housing: I Have Housing Concerned About Future Housing: No Difficulty Paying Gas/Electric Bills: No Difficulty Paying for Meds: No Currently Unemployed: No Education: High School Diploma/GED Difficulty w/ Childcare or Family Care: No Living arrangements: with family Additional living arrangements comments: single lives with boyfriend Occupation/Education: occupation 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 Appears to be in pain, tearful HEAD: Normocephalic, atraumatic. EYES: PERRLA and EOMI. ENT: Nares clear, no rhinorrhea or epistaxis. Several erythematous macules to the buccal mucosa, lips, posterior pharynx with an overlying grayish yellow scale surrounded by a thin halo of erythema. Tongue with yellow-white plaques consistent with thrush NECK: Supple. No nuchal rigidity CHEST: Clear to auscultation. No respiratory distress. HEART: Regular rate and rhythm. No murmur heard. Normal peripheral pulses. ABDOMEN: Soft, nontender, nondistended, normal active bowel sounds. EXTREMITIES: Normal range of motion. No edema. SKIN: Erythematous macules and scattered small vesicles on an erythematous base on the dorsum of the left foot, bilateral anterior medial thighs, bilateral upper extremities, right lower abdomen. NEURO: No focal deficits. Alert and oriented x3 Course Vital Signs Vital signs: Vital Signs Temperature 97.4 F L 10/07/24 21:25 Pulse Rate 75 10/07/24 21:25 Respiratory Rate 15 10/07/24 21:25 Blood Pressure 113/72 10/07/24 21:25 Pulse Oximetry 100 10/07/24 21:25 Oxygen Delivery Room Air 10/07/24 21:25 Temperature 97.4 F L 10/07/24 21:25 Pulse Rate 75 10/07/24 21:25 Respiratory Rate 15 10/07/24 21:25 Blood Pressure 113/72 10/07/24 21:25 Pulse Oximetry 100 10/07/24 21:25 Oxygen Delivery Room Air 10/07/24 21:25 MDM - Dental/Oral MDM Narrative Medical decision making narrative: 28-year-old female presents to the emergency department for decreased p.o. intake, generalized weakness and concern for dehydration after diagnosis of orzb-ymxs-hbtps disease 3 days ago. Triage vitals are stable. Exam is significant for the above. Patient does appear to be in pain and is tearful on exam. Her rash is consistent with daxa-rkpa-pbgjy disease. I am concerned that she is getting dehydrated to decreased p.o. intake. Will obtain basic labs, strep, COVID and flu, mono and provide IV fluids, pain medications and re-eval uate. CBC shows no leukocytosis. Chemistries with BUN of 21 and normal creatinine of 0.8, otherwise unremarkable. COVID, flu, RSV, strep and mono were negative. Patient received GI cocktail, Toradol, morphine and IV fluids. She is tolerating p.o. intake. Patient feels safe to be discharged home and agrees to push fluids. She is requesting a refill on her viscous lidocaine. This is provided along with [place] to use for breakthrough pain. Discussed strict ED return precautions. She is agreeable to plan verbalized understanding. Discharged in stable condition. Lab Data 10/07/24 22:40 10/07/24 22:40 Labs: Lab Results 10/07/24 10/07/24 10/07/24 Range/Units 22:16 22:40 23:33 WBC 6.6 (4.5-10.0) K/mm3 RBC 4.78 (4.2-5.4) M/mm3 Hgb 14.8 (12.0-15.0) g/dL Hct 42.5 (37.0-47.0) % MCV 88.9 (80-100) fl MCH 31.0 (26-34) pg MCHC 34.8 (32-36) g/dl RDW 12.8 (11.5-14.5) % Plt Count 258 (150-375) k/mm3 MPV 11.0 H (7.4-10.4) fl Immature Gran % (Auto) 0.3 (0-0.5) % Neut % (Auto) 54.7 (45.5-73.1) % Lymph % (Auto) 36.5 (18.3-44.2) % [place] % (Auto) 6.8 (2.6-8.5) % Eos % (Auto) 0.6 (0-4.4) % Baso % (Auto) 1.1 (0.2-1.2) % Lymph # (Auto) 2.41 (0.9-3.2) K/mm3 [place] # (Auto) 0.5 (0.1-0.6) K/mm3 Eos # (Auto) 0.0 (0-0.3) K/mm3 Baso # (Auto) 0.1 (0.0-0.1) K/mm3 Abs Immat Gran (auto) 0.02 (0.00-0.031) K/mm3 Absolute Neuts (auto) 3.6 (1.3-6.7) K/mm3 Absolute Nucleated RBC 0.000 (0.0-0.012) K/mm3 Nucleated RBC % 0.0 (0.0-0.2) % Sodium 134 L (137-145) mmol/L Potassium 3.7 (3.4-5.0) mmol/L Chloride 102 (98-107) mmol/L Carbon Dioxide 22 (22-30) mmol/L Anion Gap 10 (4-12) mmol/L BUN 21 H D (7-17) mg/dL Creatinine 0.80 (0.7-1.0) mg/dL Estim Creat Clear Calc 97 ml/min Estimated GFR > 60 (59 - ) Glucose 106 (65-110) mg/dL Calcium 9.4 (8.4-10.2) mg/dL Monoscreen Negative (Negative) Influenza A (RT-PCR) Negative (Negative) Influenza B (RT-PCR) Negative (Negative) RSV (RT-PCR) Negative (Negative) SARS-CoV-2 RNA (RT-PCR) Negative (Negative) Group A Strep (PCR) Not detected (Negative) Discharge Plan Discharge Clinical Impression: Hand, foot and mouth disease, Oral thrush Patient Disposition: Home, Self-Care Condition: Stable Instructions: Antibiotic Form, Oral Candidiasis (ED), Hand, Foot, and Mouth Disease (ED) Additional Instructions: Your evaluated in the emergency department for hand foot and mouth disease. Please take the pain medications as needed and make sure to drink plenty of fluids including water, Gatorade and Pedialyte. If you feel the right becoming dehydrated or your unable to keep down food or fluids, please return to the emergency department. please follow-up closely with her primary care provider. Continue taking the fluconazole as directed. Prescriptions: New lidocaine HCl [Lidocaine Viscous] 2 % solution 1 applic mucous membrane QID PRN (Reason: pain) Qty: 300 1RF hydrocodone-acetaminophen 5-325 mg tablet 1 tablet PO Q8H PRN (Reason: pain) Qty: 14 0RF No Action sertraline 100 mg tablet 150 mg PO DAILY Qty: 45 3RF sumatriptan succinate 100 mg tablet See Rx Instructions PO .COMPLEX Qty: 10 2RF Hold Instructions: .Provider Order Rx Instructions: take 1 tab at onset of headache; if no relief, may repeat 1 tab after at least 2 hrs; max = 2 tabs/24 hrs PO diclofenac sodium 50 mg tablet,delayed release (DR/EC) 50 mg PO BID Qty: 60 1RF Nurtec ODT 75 mg tablet,disintegrating 75 mg PO DAILY PRN (Reason: migraine headache) Qty: 30 8RF Hold Instructions: .Provider Order Rx Instructions: as a single dose for headache metronidazole 500 mg tablet 500 mg PO Q12H Qty: 14 0RF ondansetron 4 mg tablet,disintegrating 4 mg PO Q6H PRN (Reason: nausea and vomiting) Qty: 14 2RF drospirenone-ethinyl estradiol [[place] (28)] 3-0.02 mg tablet 1 tablet PO DAILY Qty: 112 4RF Rx Instructions: take 1 tablet by mouth daily in continuous manner skipping the placebo pills montelukast 10 mg tablet 10 mg PO QHS Qty: 30 3RF alprazolam 0.5 mg tablet 0.5 mg PO BID PRN (Reason: anxiety) Qty: 60 0RF fluconazole 100 mg tablet 100 mg PO .COMPLEX Qty: 8 0RF Rx Instructions: 200mg orally on day 1, then take 100 mg orally x 6 days Follow-up/Referrals: Sherry Rubio MD [Primary Care Provider] - Stand Alone Forms: Work/School Release IP
[2024-10-07 22:47] LABS: Strep Group A RT-PCR NOT DETECTED (Negative)
[2024-10-07 22:52] LABS: Basophils Absolute Auto 0.1 K/mm3 (0.0-0.1); Basophils Percent Auto 1.1 % (0.2-1.2); Eosinophils Percent Auto 0.6 % (0-4.4); Hematocrit 42.5 % (37.0-47.0); Hemoglobin 14.8 g/dL (12.0-15.0); Immature Granulocyte Absolute 0.02 K/mm3 (0.00-0.031); Immature Granulocyte Percent A 0.3 % (0-0.5); Lymphocytes Absolute Auto 2.41 K/mm3 (0.9-3.2); Lymphocytes Percent Auto 36.5 % (18.3-44.2); Mean Corpuscular HGB Conc 34.8 g/dl (32-36); Mean Corpuscular Volume 88.9 fl (80-100); Monocytes Absolute Auto 0.5 K/mm3 (0.1-0.6); Monocytes Percent Auto 6.8 % (2.6-8.5); Neutrophils Absolute Auto 3.6 K/mm3 (1.3-6.7); Neutrophils Percent Auto 54.7 % (45.5-73.1); Platelet Count Result 258 k/mm3 (150-375); Red Blood Count 4.78 M/mm3 (4.2-5.4); Red Cell Distribution Width 12.8 % (11.5-14.5); White Blood Count 6.6 K/mm3 (4.5-10.0)
[2024-10-07 23:00] LABS: Influenza A QL RT-PCR Negative (Negative); Influenza B QL RT-PCR Negative (Negative); RSV RNA, RT-PCR Negative (Negative); SARS-CoV-2 RNA PCR Negative (Negative)
[2024-10-07 23:10] LABS: Anion Gap 10 mmol/L (4-12); Blood Urea Nitrogen 21 mg/dL (7-17); Calcium 9.4 mg/dL (8.4-10.2); Carbon Dioxide 22 mmol/L (22-30); Chloride 102 mmol/L (98-107); Estimated CRCL calculation 97 ml/min; Estimated Glomerular Filt Rate > 60; Glucose 106 mg/dL (65-110); Potassium 3.7 mmol/L (3.4-5.0); Sodium 134 mmol/L (137-145)
[2024-10-07 23:56] LABS: Monoscreen Negative (Negative); Negative Monotest Control Negative (Negative); Positive Monotest Control Positive (Positive)
[2024-10-07] MEDS: SODIUM CHLORIDE 0.9% IV 1,000 ML 999 ML IV CONT (23:59)
[2024-10-08 01:23] VITALS: BP 122/68; PULSE 70; RESP 15; O2SAT 100
== END 2024-10-08 01:24 | disposition home or self-care (01) ==
PROVIDERS: Emergency Provider Physician Assistant; PCP Family Medicine
DX: B08.4 Enteroviral vesicular stomatitis with exanthem (principal); B37.0 Candidal stomatitis; F41.8 Other specified anxiety disorders; Z20.822 Contact with and (suspected) exposure to COVID-19
CPT/HCPCS: 36415; 80048; 85025; 86308; 87637; 87651; 96361; 96374; 96375; 99284; A9270; J1885; J2270; J7030

== ENCOUNTER 2025-06-03 14:00 | Emergency (ER) | payer OTHER, SELFPAY ==
--- NOTE | ~2025-06-03 | US_ITS ---
EXAMINATION: US OB <= 14 weeks fetus DATE: 06/03/2025 18:47 CDT INDICATION: Lower abdominal pain COMPARISON: None TECHNIQUE: Real-time transabdominal obstetric ultrasound. FINDINGS: 2 para 1 Estimated date of delivery by last menstrual period is 01/20/2026 The uterus measures 8.7 x 4.1 x 5.7 cm. A gestational sac is identified within the uterus. A pole is identified, with a crown-rump length that measures 0.5 cm, corresponding to an approx imate gestational age of 6 weeks and 1 day. cardiac activity is identified at a rate of 123 bpm. The right ovary measures 3.4 x 2.1 x 3.1 cm. The left ovary measures 2.7 x 2.5 x 2.5 cm. Estimated date of delivery by ultrasound is 01/26/2026 IMPRESSION: Single intrauterine gestation with an approximate gestational age of 6 weeks and 1 day, with ca rdiac activity identified. Reviewed, dictated and finalized at location A. IMPRESSION: Single intrauterine gestation with an approximate gestational age of 6 weeks an d 1 day, with cardiac activity identified.
--- OUTSIDE RECORDS SUMMARY | 2025-06-03 14:06 | XMS_ITS | Clinical Summary ---
Author Organization [facility] Address [address] [place] [address] Phone Care Team Providers Care Screen Tender Helper Name Role Phone (Excluded Provider) Arnol Phillip MD Primar y Care Provider Allergies No known active allergies Medications sertraline (Zoloft) 50 mg tablet Take 50 mg by mouth daily. Active clonazePAM (KlonoPIN RAPID DISSOLVE) 0.125 mg Tablet, Rapid Dissolve Take 0.5 mg by mouth 3 times daily. Active ALPRAZolam (XANAX) 0.25 mg tablet Take 0.25 mg by mouth nightly as needed for Anxiety. Active pantoprazole (PROTONIX) 40 mg Tablet, Delayed Release (E.C.) Take 40 mg by mouth daily. Active ondansetron (ZOFRAN) 4 mg/5 mL Solution Take by mouth every 8 hours as needed. 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 Gender Identity Not on file Sexual Orientation Not on file Occupation Industry Job Start Date Job End Date [employer] Not on file Not on file Not on file Last Filed Vital Signs Vital Sign Reading Time Taken Comments Blood Pressure 109/72 06/01/2021 3:05 PM CDT Pulse 80 06/01/2021 3:05 PM CDT Temperature 36.8 C (98.2 F) 08/14/2016 9:00 AM CDT Respiratory Rate 18 08/14/2016 9:00 AM CDT Oxygen Saturation 96% 08/14/2016 9:00 AM CDT Inhaled Oxygen Concentration - - Weight 54.4 kg (120 lb) 06/01/2021 3:05 PM CDT Height 170.2 cm (5' 7) 06/01/2021 3:05 PM CDT Body Mass Index 18.79 06/01/2021 3:05 PM CDT Plan of Treatment Health Maintenance Due Date Last Done Comments DTAP/TDAP/TD VACCINES (1 - Tdap) 2014 HEPATITIS B VACCINES (1 of 3 - 19+ 3-dose series) 2014 CERVICAL CANCER SCREENING 2016 HPV/Cotest (21-29) 2016 PAP SMEAR 2016 INFLUENZA VACCINE (#1) 2025 HPV VACCINES Aged Out No longer eligi ble based on patient's age to complete this topic Insurance [employer] [place] [address] [id number] Advance Directives For more information, please contact: [phone] * Full Code (Latest Code Status on File) Date Activated Date Inactivated Comments 08/12/2016 11:20 PM 08/15/2016 1:55 PM Care Teams Screen Tender Helper Relationship Specialty Start Date End Date (Excluded Provider) Arnol Phillip MD [address] [address] PCP - General Pediatrics 06/01/21
--- OUTSIDE RECORDS SUMMARY | 2025-06-03 14:06 | XMS_ITS | Clinical Summary ---
Author Organization [facility] Address [address] [place] [address] Care Team Providers Care Pleat Taper Name Role Phone Unavailable Primary Care Provider Unavailabl e Source Comments [facility],non-owned Affiliates and Associated Physician Practices is amultiple site organization consisting of ambulatory clinics and hospital sitesin [place], [place], [place] and [place]. This disclosure is being madepursuant to the Care Everywhere program and may not contain all information available regarding this patient. 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 Gender Identity Not on file Sexual Orientation Not on file Plan of Treatment Health Maintenance Due Date Last Done Comments HIV SCREENING 2010 HEPATITIS C SCREENING 10/18/2013 DTAP/TDAP/TD VACCINES (1 - Tdap) 2014 HEPATITIS B VACCINE (1 of 3 - 19+ 3-dose series) 2014 PAP SMEAR 2016 COVID-19 VACCINE (1 - 2023-2 5 season) 2024 DEPRESSION SCREENING 11/27/2024 INFLUENZA VACCINE (#1) 2025 ZOSTER VACCINE (1 of 2) 2045 HIB VACCINE Aged Out No longer eligi ble based on patient's age to complete this topic HPV VACCINE Aged Out No longer eligi ble based on patient's age to complete this topic MENINGOCOCCAL (Group B) VACC INE SHARED DECISION-MAKING Aged Out No longer eligibl e based on patient's age to complete this topic MENINGOCOCCAL GROUPS A/C/Y/W VACCINE Aged Out No longer eligible b ased on patient's age to complete this topic PNEUMOCOCCAL VACCINE Aged Out No long er eligible based on patient's age to complete this topic Insurance [facility]
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
--- OUTSIDE RECORDS SUMMARY | 2025-06-03 14:06 | XMS_ITS | Encounter Summary ---
Author Organization [facility] Address [address] [place] [address] Care Team Providers Care Operations Manager Assistant Name Role Phone Unavailable Primary Care Provider Unavailabl e Encounter Details Date Type Department Care Team (Late st Contact Info) Description 08/04/2023 Lab Requisition [facility] [address] [facility] [place] [address] Renetta Curry PA-C [address] [place] [phone] Melanocytic nevi of trunk; Melanocytic nevi of right upper limb, including shoulder Social History Tobacco Use Types Packs/Day Years Used Date Smoking Tobacco: Never Assessed Comments Unknown Sex and Gender Information Value Date Recorded Sex Assigned at Not on file 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
--- OUTSIDE RECORDS SUMMARY | 2025-06-03 14:06 | XMS_ITS | Encounter Summary ---
Author Organization [facility] Address 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
--- OUTSIDE RECORDS SUMMARY | 2025-06-03 14:07 | XMS_ITS | Continuity of Care Document ---
Author Organization [facility] [place] [address] [place] [address] Phone Care Team Providers Care Recovery Collector Name Role Phone Forman OD, Fredy Unavailable Unavailable Procedures Procedure Date Eye Exam Established Pt Contact Lens Check CL Replacement - Vistakon Disp W/BW Soft Tax - Medical Contact Lens Check Eye Exam, New Patient Refraction Advance Directives Directive Yes / No Effective Date File Name No Information Encounters Encounter Description Practice Location Reason(s) For Visit Diagnoses Date Provider Providers Copied on Encounter [facility], [address] [place] [address] [address], [place], [place], [address], [place] tel:[phone] [facility] No Information 9-201 0 Forman OD Fredy. [address] , [address], [place], [address], [place]. tel:[phone] [facility], [address], [place], [place], [id number], [place] tel:[phone] [facility] No Information 5-200 9 Forman OD Fredy. [address] , [address], [place], [address], [place]. tel:[phone] [facility], [address], [place], [place], [address], [place] tel:[phone] [facility] No Information Oct-0 8-200 9 Forman OD Fredy. [address] , [address], [place], [address], [place]. tel:[phone] [facility], [address], [place], [place], [address], tel:[phone] [facility] No Information Oct-0 1-200 9 Forman OD Fredy. [address] , [address], [place], [address], [place]. tel:[phone] Family History Family Member Type Diagnosis Age At Onset No Information Payers Payer name Insurance type Covered alliance party ID Authoriza tion(s) No Information Social History Type Description Quantity Date Captured Comments Sex Female Smoking Status No Information Chief Complaint And Reason For Visit No Information Reason For Referral Reason For Referral No Information History Of Present Illness Encounter Date Complaint History Of Prese nt Illness No Information Functional Status Date Functional Assessmen t No Information Instructions Date Instruction Additional Infor mation No Information Assessments Type Assessment Date No Information Patient Care Teams Name Effective Dates (start - stop) Status Members No Information
--- OUTSIDE RECORDS SUMMARY | 2025-06-03 14:07 | XMS_ITS | Clinical Summary ---
Author Organization [facility] Address [address] [place] [address] Care Team Providers Care Electronic Gaming Device Supervisor Name Role Phone Argentina Nails MYCHALCALEB Primary Care Provider Allergies No known active allergies Medications buPROPion XL 150 MG 24 hr tablet 0 Active butalbital-acetamin ophen-caffeine 50-325-40 MG tablet 07/10/20 2 0 Active clonazePAM 0.5 MG tablet 0 Active cloNIDine 0.1 MG tablet TAKE 1 TABLET BY MOUTH ONCE DAILY AT BEDTIME FOR 30 DAYS 0 Active cyclobenzaprine 10 MG tablet Take 10 mg by mouth 3 (three) times daily as needed. 0 Active diclofenac sodium 1 % gel APPLY 2 GRAMS ON THE SKIN TWICE A DAY 0 Active ibuprofen 800 MG tablet Take 800 mg by mouth daily as needed. FOR PAIN 0 Active lidocaine 5 % ointment 0 Active PIRMELLA 1/35 1-35 MG-MCG tablet Take 1 tablet by mouth daily. 0 Active ondansetron 4 MG disintegrating tablet DISSOLVE 1 TABLET IN MOUTH THREE TIMES DAILY NEEDED 0 Active meloxicam 7.5 MG tabletIndications:N eran pain,Bulging of cervical intervertebral disc Take 1 tablet (7.5 mg total) by mouth daily. 60 tablet 0 Active traMADol 50 MG tabletIndications:C hronic Pain Take 1 tablet (50 mg total) by mouth every 6 (six) hours as needed for Pain. Indications: Chronic Pain 20 tablet 0 Active Active Problems Problem Noted Date Diagnosed Date Depression 07/26/2020 Anxiety 07/26/2020 Family History Medical History Relation Comments Anxiety Father Depression Father Hypertension Father No Known Problems Maternal Aunt Kidney Disease Maternal Grandfather dialysis Maternal Grandfather Heart Disease Maternal Grandmother No Known Problems Maternal Uncle No Known Problems Mother No Known Problems Paternal Aunt Anxiety Paternal Grandfather COPD Paternal Grandfather Heart Disease Paternal Grandfather Hypertension Paternal Grandfather No Known Problems Paternal Grandmother No Known Problems Paternal Uncle Anxiety Sister Relation Status Comments Father Alive Maternal Aunt Maternal Grandfather Alive Maternal Grandmother Alive Maternal Uncle Mother Alive Paternal Aunt Paternal Grandfather Alive Paternal Grandmother Alive Paternal Uncle Sister Alive Social History Tobacco Use Types Packs/Day Years Used Date Smoking Tobacco: Never Smokeless Tobacco: Never Alcohol Use Standard Drinks/Week Comments Yes 0 (1 standard drink = 0.6 oz pur e alcohol) 2 PHQ-2 Answer Date Recorded PHQ-2 Score - If the patient scores above 3, please move on to questions 3-9 2 07/24/2020 Comments No Sex and Gender Information Value Date Recorded Sex Assigned at Not on file Legal Sex Female 12:25 PM CDT Gender Identity Not on file Sexual Orientation Not on file Last Filed Vital Signs Vital Sign Reading Time Taken Comments Blood Pressure 115/81 07/24/2020 12:51 PM CDT Pulse 63 07/24/2020 12:51 PM CDT Temperature 37.2 C (99 F) 07/24/2020 12:51 PM CDT Respiratory Rate 20 07/24/2020 12:5 1 PM CDT Oxygen Saturation 100% 07/24/2020 12: 51 PM CDT Inhaled Oxygen Concentration - - Weight 59.8 kg (131 lb 14.4 oz) 020 12:51 PM CDT Height 170.2 cm (5' 7) 07/24/2020 12:5 1 PM CDT Body Mass Index 20.66 07/24/2020 12:51 PM CDT Plan of Treatment Health Maintenance Due Date Last Done Comments Cervical Cancer Screening Pa p Smear (Age 21 to 29) Every 3 Years 1995 Cervical Cancer Screening 1995 Annual Physical 1998 Hepatitis C 2013 DTaP, Tdap and Td Vaccines ( 1 - Tdap) 2014 Hepatitis B Vaccines (1 of 3 - 19+ 3-dose series) 2014 COVID-19 Vaccine (2023-2 5 season) 2024 HPV Vaccines Aged Out No longer eligi ble based on patient's age to complete this topic Meningococcal B Vaccine Aged Out No l onger eligible based on patient's age to complete this topic Meningococcal Vaccine Aged Out No adilia jarod eligible based on patient's age to complete this topic Pneumococcal Vaccine: Pediat rics (0 to 5 Years) and At-Risk Patients (6 to 49 Years) Aged Out No longer eligible b ased on patient's age to complete this topic RSV Immunizations Under 20 Months Aged Out No longer eligible based on patient's age to complete this topic Insurance Care Teams Electronic Gaming Device Supervisor Relationship Specialty Start Date End Date Argentina Nails APNP [address] [place] [id number] PCP - General NURSE PRACTITIONER 07/24/20
[2025-06-03 14:14] VITALS: BP 120/77; PULSE 68; RESP 16; TEMP 36.4; O2SAT 100
--- OUTSIDE RECORDS SUMMARY | 2025-06-03 15:19 | XMS_ITS | Encounter Summary ---
Author Organization [facility] Address 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
--- OUTSIDE RECORDS SUMMARY | 2025-06-03 15:19 | XMS_ITS | Clinical Summary ---
Author Organization [facility] Address [address] [place] [address] Care Team Providers Care School Vocational Educator Name Role Phone Argentina Nails MYCHALCALEB Primary [...] patient's age to complete [place] [address] Care Teams School Vocational Educator Relationship Specialty Start Date End Date Argentina Nails APNP [address] [place] [id number] PCP - General NURSE PRACTITIONER 07/24/20
--- OUTSIDE RECORDS SUMMARY | 2025-06-03 15:19 | XMS_ITS | Clinical Summary ---
Author Organization [facility] Address [address] [address] Care Team Providers Care Liberal Arts Dean Name Role Phone Unavailable Primary Care Provider Unavailabl e Source Comments [facility],non-owned Affiliates and Associated Physician Practices is amultiple site organization consisting of ambulatory clinics and hospital sitesin [place], [place], [place] and [place]. This disclosure is being madepursuant to the Care Everywhere program and may not contain all information available regarding this patient. Last updated 18.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
--- OUTSIDE RECORDS SUMMARY | 2025-06-03 15:19 | XMS_ITS | Continuity of Care Document ---
Author Organization [facility] [place] [address] [place] [address] Phone Care Team Providers Care Public Policy Coordinator Name Role Phone Forman OD, Fredy Unavailable Unavailable Procedures Procedure Date Eye Exam Established Pt Contact Lens Check CL Replacement - Vistakon Disp W/BW Soft Tax - Medical Contact Lens Check Eye Exam, New Patient Refraction Advance Directives Directive Yes / No Effective Date File Name No Information Encounters Encounter Description Practice Location Reason(s) For Visit Diagnoses Date Provider Providers Copied on Encounter [facility], [address] [place] [address] [address], [place], [place], [id number], [place] tel:[phone] [facility] No Information 9-201 0 Forman OD Fredy. [address] , [address], [place], [address], [place]. tel:[phone] [facility], [address], [place], [place], [address], [place] tel:[phone] SEC [facility] No Information 5-200 9 Forman OD Fredy. [address] , [address], [place], [address], [place]. tel:[phone] [facility], [address], [place], [place], [id number], [place] tel:[phone] [facility] No Information Oct-0 8-200 9 Forman OD Fredy. [address] , [address], [place], [address], [place]. tel:[phone] [facility], [address], [place], [place], [address], tel:[phone] [facility] No Information Oct-0 1-200 9 Forman OD Fredy. [address] , [address], [place], [address], [place]. tel:[phone] Family History Family Member Type Diagnosis Age At Onset No Information Payers Payer name Insurance type Covered libertarian ID Authoriza tion(s) No Information Social History [...]
--- OUTSIDE RECORDS SUMMARY | 2025-06-03 15:19 | XMS_ITS | Encounter Summary ---
Author Organization [facility] Address [address] [place] [address] Care Team Providers Care Control Systems Designer Name Role Phone Unavailable Primary Care Provider Unavailabl e Encounter Details Date Type Department Care Team (Late st Contact Info) Description 08/04/2023 Lab Requisition [facility] [address] 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
--- OUTSIDE RECORDS SUMMARY | 2025-06-03 15:19 | XMS_ITS | Clinical Summary ---
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
[2025-06-03 15:26] LABS: Hematocrit 41.2 % (37.0-47.0); Hemoglobin 14.1 g/dL (12.0-15.0); Immature Granulocyte Percent A 0.7 % (0-0.5); Lymphocytes Absolute Auto 0.89 K/mm3 (0.9-3.2); Mean Corpuscular HGB Conc 34.2 g/dl (32-36); Mean Corpuscular Hemoglobin 31.1 pg (26-34); Mean Corpuscular Volume 90.9 fl (80-100); Nucleated Red Blood Cells Absolute Auto 0.000 K/mm3 (0.0-0.012); Nucleated Red Blood Cells Perc 0.0 % (0.0-0.2); Platelet Count Result 207 k/mm3 (150-375); Red Blood Count 4.53 M/mm3 (4.2-5.4); White Blood Count 10.2 K/mm3 (4.5-10.0)
[2025-06-03] MEDS: ONDANSETRON INJ 4 MG/2 ML VIAL IV PUSH (15:28)
[2025-06-03] MEDS: LACTATED RINGERS 1,000 ML 999 ML IV CONT ×2 (15:28→16:45)
[2025-06-03 15:38] LABS: Alanine Aminotransferase 14 U/L (6-35); Albumin Level 4.7 g/dL (3.5-5.1); Alkaline Phosphatase 70 U/L (38-126); Anion Gap 11 mmol/L (4-12); Aspartate Amino Transferase 23 U/L (14-36); Bilirubin,Total 0.4 mg/dL (0.2-1.3); Blood Urea Nitrogen 6 mg/dL (7-17); Calcium 9.3 mg/dL (8.4-10.2); Carbon Dioxide 23 mmol/L (22-30); Chloride 104 mmol/L (98-107); Estimated CRCL calculation 128 ml/min; Estimated Glomerular Filt Rate > 60; Glucose 151 mg/dL (65-110); Potassium 3.7 mmol/L (3.4-5.0); Sodium 138 mmol/L (137-145); Total Protein 7.9 g/dL (6.3-8.2)
--- NOTE | 2025-06-03 15:51 | ED.GENADULT ---
HPI - General Adult General Chief complaint: Nausea/Vomiting/Diarrhea Stated complaint: N/V, + Time Seen by Provider: 06/03/25 14:53 History of Present Illness HPI narrative: 29-year-old female presented to the emergency department for evaluation for nausea vomiting and diarrhea. Patient states her last menstrual period was 04/15 patient has had positive home test. Patient does have follow-up with OB Gyne, Dr Davila, next week. Patient began having worsening symptoms last night. Patient does have some upper epigastric abdominal pain but denies any lower abdominal pain, vaginal bleeding vaginal discharge Related Data Allergies Allergy/AdvReac Type Severity Reaction Status Date / Time No Known Allergies Allergy Verified 06/03/25 14:16 Review of Systems Review of Systems: All systems reviewed & are unremarkable except as noted in HPI and below PMFSH Past Medical History Medical History Anxiety Depression Kidney stone Migraine Seasonal allergies Surgical History Surgical History History of removal of skin mole (~2016) No significant past surgical history Family History Family History Father Depression Anxiety Alcoholism Grandparent Chronic diastolic CHF (congestive heart failure) End-stage renal disease on hemodialysis Grandparent Congestive heart failure Grandparent Renal disease Other Heart disease Hypertension Social History Social History Social History: Toyin lives at home by herself in [place]. 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 She reports occasional alcohol use around 1 drink per week or less. Denies other substance use. Her primary care provider is Dr. Phillip in [place], [place]. She designates her sister, Vanessa Tian, as her surrogate decision maker. Full code status. Smoking status: Never smoker Second hand tobacco smoke exposure: No Alcohol intake: current Alcohol use details: 1 drink per month Substance use: former Substance use type: does not use Other substance usage details: Smokes marijuana 4 days per week regularly since the 7th grade Lack of Transportation: No Lack of Food: Never True Current Housing: I Have Housing Concerned About Future Housing: No Difficulty Paying Gas/Electric Bills: No Difficulty Paying for Meds: No Currently Unemployed: No Education: High School Diploma/GED Difficulty w/ Childcare or Family Care: No Living arrangements: with family Additional living arrangements comments: single lives with boyfriend Occupation/Education: 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 EYES: PERRLA/EOMI, conjunctivae clear. NOSE: Normal no drainage EARS:TMS clear with good light reflex. THROAT: Pharynx clear, no exudate. NECK: Supple. No adenopathy, no masses. RESPIRATORY: Airway patent, respirations nonlabored. Clear to auscultation bilaterally, no rales, rhonchi, wheezing. CARDIOVASCULAR: Regular rate and rhythm without murmurs rubs or gallops. ABDOMINAL: Soft, nontender, nondistended, normal bowel sounds MUSCULOSKELETAL: Moves all extremities. Strength/ROM intact, No edema, No calf tenderness. NEURO: Alert. Cranial nerves II through XII intact. Good gait. Good coordination SKIN: Warm, dry. Normal Color Course Vital Signs Vital signs: Vital Signs Temperature 97.5 F L 06/03/25 14:14 Pulse Rate 68 06/03/25 14:14 Respiratory Rate 16 06/03/25 14:14 Blood Pressure 120/77 06/03/25 14:14 Pulse Oximetry 100 06/03/25 14:14 Oxygen Delivery Room Air 06/03/25 14:14 Temperature 98.2 F 06/03/25 20:07 Pulse Rate 68 06/03/25 20:07 Respiratory Rate 18 06/03/25 20:07 Blood Pressure 105/62 06/03/25 20:07 Pulse Oximetry 100 06/03/25 20:07 Oxygen Delivery Room Air 06/03/25 14:14 Medical Decision Making MDM Narrative Medical decision making narrative: 29-year-old female presents to the emergency department for evaluation for nausea vomiting and abdominal cramping. Patient did feel improved with rehydration. Patient is currently afebrile but does have a leukocytosis of 10.2 and hemoglobin of 14.1. Patient has no significant acute abnormalities on her CMP and patient's beta hCG is 73,418. UA was positive for ketones, leukocyte esterase positive and 6-10 whites with occasional squamous and no bacteria. Patient denies any urinary symptoms. Urine culture was ordered. ultrasound does show an intrauterine with heart rate detected with approximate age of 6 weeks and 1 day. Patient did feel improved with rehydration. Patient did tolerate p.o.. Patient was provided Zofran and Reglan for nausea control at home. Patient does have close follow-up with OB Gyne scheduled for Monday. Differential Diagnosis Differential Diagnosis: Urinary tract infection, hyperemesis gravidarum, ectopic , colitis, diverticulitis, intractable nausea and vomiting Vital Signs Vital Signs: Vital Signs Temperature 97.5 F L 06/03/25 14:14 Pulse Rate 68 06/03/25 14:14 Respiratory Rate 16 06/03/25 14:14 Blood Pressure 120/77 06/03/25 14:14 Pulse Oximetry 100 06/03/25 14:14 Oxygen Delivery Room Air 06/03/25 14:14 Temperature 98.2 F 06/03/25 20:07 Pulse Rate 68 06/03/25 20:07 Respiratory Rate 18 06/03/25 20:07 Blood Pressure 105/62 06/03/25 20:07 Pulse Oximetry 100 06/03/25 20:07 Oxygen Delivery Room Air 06/03/25 14:14 Lab Data Lab results reviewed: Yes I reviewed the patient's lab results. 06/03/25 15:19 06/03/25 15:19 Labs: Lab Results 06/03/25 06/03/25 Range/Units 15:19 15:59 WBC 10.2 H (4.5-10.0) K/mm3 RBC 4.53 (4.2-5.4) M/mm3 Hgb 14.1 (12.0-15.0) g/dL Hct 41.2 (37.0-47.0) % MCV 90.9 (80-100) fl MCH 31.1 (26-34) pg MCHC 34.2 (32-36) g/dl RDW 12.8 (11.5-14.5) % Plt Count 207 (150-375) k/mm3 MPV 11.5 H (7.4-10.4) fl Immature Gran % (Auto) 0.7 H (0-0.5) % Neut % (Auto) 84.5 H (45.5-73.1) % Lymph % (Auto) 8.8 L (18.3-44.2) % [place] % (Auto) 5.4 (2.6-8.5) % Eos % (Auto) 0.1 (0-4.4) % Baso % (Auto) 0.5 (0.2-1.2) % Lymph # (Auto) 0.89 L (0.9-3.2) K/mm3 [place] # (Auto) 0.6 (0.1-0.6) K/mm3 Eos # (Auto) 0.0 (0-0.3) K/mm3 Baso # (Auto) 0.1 (0.0-0.1) K/mm3 Abs Immat Gran (auto) 0.07 H (0.00-0.031) K/mm3 Absolute Neuts (auto) 8.6 H (1.3-6.7) K/mm3 Absolute Nucleated RBC 0.000 (0.0-0.012) K/mm3 Nucleated RBC % 0.0 (0.0-0.2) % Sodium 138 (137-145) mmol/L Potassium 3.7 (3.4-5.0) mmol/L Chloride 104 (98-107) mmol/L Carbon Dioxide 23 (22-30) mmol/L Anion Gap 11 (4-12) mmol/L BUN 6 L D (7-17) mg/dL Creatinine 0.53 L (0.7-1.0) mg/dL Estim Creat Clear Calc 128 ml/min Estimated GFR > 60 (59 - ) Glucose 151 H (65-110) mg/dL Calcium 9.3 (8.4-10.2) mg/dL Total Bilirubin 0.4 (0.2-1.3) mg/dL AST 23 (14-36) U/L ALT 14 (6-35) U/L Alkaline Phosphatase 70 (38-126) U/L Total Protein 7.9 (6.3-8.2) g/dL Albumin 4.7 (3.5-5.1) g/dL Lipase 67 (23-300) U/L Beta HCG, Quant 05124.00 mIU/ML Urine Color Yellow (Yellow) Urine Appearance Cloudy H (Clear) Urine pH 7.0 (5.0-9.0) Ur Specific [place] 1.018 (1.001-1.035) Urine Protein Negative (Negative) mg/dL Urine Glucose (UA) Negative (Negative) mg/dL Urine Ketones 2+ H (Negative) mg/dL Ur Blood (Man) Negative (Negative) Urine Nitrate Negative (Negative) Urine Bilirubin Negative (Negative) Urine Urobilinogen 0.2 (<2.0) mg/dL Leukocyte Esterase Rfl 1+ H (Negative) NATE/UL Urine RBC 0-2 (0-2) /hpf Urine WBC 6-10 H (0-3) /hpf Ur Squamous Epith Cells Occasional (Few) /hpf Urine Bacteria None seen /hpf Urine Casts 0-2 Imaging Data Radiologist's impression: Impressions Ultrasound 06/03/25 18:46 IMPRESSION: Single intrauterine gestation with an approximate gestational age of 6 weeks and 1 day, with cardiac activity identified. Discharge Plan Discharge Clinical Impression: Nausea & vomiting, Hyperemesis gravidarum Patient Disposition: Home Condition: Stable Instructions: Antibiotic Form, Clear Liquid Diet (ED), Acute Nausea and Vomiting (ED) Additional Instructions: Clear liquid diet for the next 1-3 days. Zofran as needed for nausea control. Reglan as needed for additional nausea control. Have close follow-up with OB Gyne as scheduled. If you have any worsening symptoms then please call or return to the emergency department. Patient Language: Japanese Prescriptions: New ondansetron 4 mg tablet,disintegrating 4 mg PO Q8H PRN (Reason: nausea and vomiting) Qty: 14 0RF metoclopramide HCl [Reglan] 10 mg tablet 10 mg PO Q6H PRN (Reason: nausea and vomiting) Qty: 14 0RF No Action rimegepant 75 mg disintegrating tablet 75 mg tablet,disintegrating 0RF montelukast 10 mg tablet 10 mg PO QHS Qty: 30 3RF ubrogepant 50 mg tablet 50 mg tablet 0RF sumatriptan succinate 100 mg tablet See Rx Instructions PO .COMPLEX Qty: 10 2RF Rx Instructions: take 1 tab at onset of headache; if no relief, may repeat 1 tab after at least 2 hrs; max = 2 tabs/24 hrs PO diclofenac sodium 50 mg tablet,delayed release (DR/EC) 50 mg PO BID Qty: 60 1RF Nurtec ODT 75 mg tablet,disintegrating 75 mg PO DAILY PRN (Reason: migraine headache) Qty: 30 8RF Rx Instructions: as a single dose for headache drospirenone-ethinyl estradiol [AUSTIN (28)] 3-0.02 mg tablet 1 tablet PO DAILY Qty: 112 4RF Rx Instructions: take 1 tablet by mouth daily in continuous manner skipping the placebo pills triamcinolone acetonide 0.025 % lotion 1 applic topical BID Qty: 60 0RF acyclovir 400 mg tablet 400 mg PO TID Qty: 21 6RF sertraline 100 mg tablet 150 mg PO DAILY 90 Days Qty: 135 3RF alprazolam 0.5 mg tablet 0.5 mg PO BID PRN (Reason: anxiety) Qty: 60 0RF buspirone 10 mg tablet 10 mg PO BID Qty: 60 1RF ondansetron 4 mg tablet,disintegrating 4 mg PO Q4H PRN (Reason: nausea and vomiting) Qty: 30 2RF Rx Instructions: every 4-6 hours Follow-up/Referrals: Sherry Rubio MD [Primary Care Provider] - Les Davila MD [Physician] -
[2025-06-03 16:11] LABS: Add Urine Microscopic? YES; Appearance Urine Cloudy (Clear); Glucose Urine UA Negative (Negative); Leukocyte Esterase Ur 1+ LEU/UL (Negative); Nitrate Urine Negative (Negative); Non Pathogenic Casts 0-2; Specific Grav Ur 1.018 (1.001-1.035)
[2025-06-03 16:40] LABS: Beta HCG Quantitative 73418.00 mIU/ML
[2025-06-03] MEDS: PANTOPRAZOLE SODIUM IV 40 MG VIAL IV PUSH (16:47)
[2025-06-03] MEDS: METOCLOPRAMIDE HCL INJ 10 MG/2 ML VIAL IV PUSH ×2 (16:48→19:46)
[2025-06-03] MEDS: ACETAMINOPHEN 500 MG TABLET 1000 MG PO (18:17)
[2025-06-03 18:22] LABS: Lipase 67 U/L (23-300)
[2025-06-03 18:44] VITALS: BP 101/64; PULSE 65; RESP 16; TEMP 36.6; O2SAT 100
[2025-06-03 20:07] VITALS: BP 105/62; PULSE 68; RESP 18; TEMP 36.8; O2SAT 100
== END 2025-06-03 20:09 | disposition home or self-care (01) ==
PROVIDERS: Emergency Provider Emergency Medicine; PCP Family Medicine
DX: O21.0 Mild hyperemesis gravidarum (principal); Z3A.01 Less than 8 weeks gestation of pregnancy
CPT/HCPCS: 36415; 76801; 80053; 81001; 83690; 84702; 85025; 87086; 96361; 96374; 96375; 99284; A9270; J2405; J2470; J2765; J7120

== ENCOUNTER 2025-07-02 17:37 | Outpatient (CLI) | payer OTHER, SELFPAY ==
--- OUTSIDE RECORDS SUMMARY | 2025-07-02 17:41 | XMS_ITS | Clinical Summary ---
Author Organization [facility] Address [address] [place] [address] Care Team Providers Care Implementation Coordinator Name Role Phone Argentina Nails MYCHALCALEB Primary [...] of 3 - 19+ 3-dose series) 2014 HPV Vaccines (1 - 3-dose SCD M series) 2022 COVID-19 Vaccine (1 - 2023-2 5 season) 2024 Meningococcal B Vaccine Aged Out No l [...] to complete this topic Insurance Care Teams Implementation Coordinator Relationship Specialty Start Date End Date Argentina Nails APNP [facility] [place] [address] PCP - General NURSE PRACTITIONER 07/24/20
--- OUTSIDE RECORDS SUMMARY | 2025-07-02 17:41 | XMS_ITS | Patient Health Record ---
Author Organization [facility] Address [address] [place] [address] Care Team Providers Care Family Nurse Name Role Phone Selvin Durantxavier Primary Care Provider Allergies Allergen (clinical drug ingredient) Drug/Non Drug [...] Status Risk Notes Problem Generalized anxiety disorder (73277900) Generalized anxiety disorder (F41.1) Active confirmed Problem Panic disorder (897528150) Panic disorder (F41.0) Active confirmed Problem migraine (disorder) (02731097) Migraines (G43.909) Active confirmed Problem Recurrent major depression (89383111) Major depression, recurrent, chronic (F33.9) Active confirmed Problem Back pain due to injury (S39.92XA) Active confirmed Problem depression (09898886) 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 Encounters Encounter Location Date Provider Diagnosis [address] [address] 08/13/2024 Holly Durant Generalized anxiety disorder F41.1 ; Post depression F53.0 ; Medication side effect T88.7XXA and Panic disorder F41.[address] [address] 11/26/2024 Holly Durant Generalized anxiety disorder F41.1 ; Post depression F53.0 ; Medication side effect T88.7XXA and Panic disorder F41.[address] [address] 11/25/2024 Holly Durant Assessments Encounter Date Diagnosis (ICD Code) Assessment Notes Treatment Notes Treatment Clinical Notes Section Notes 08/13/2024 Generalized anxiety disorder (ICD-10 - F41.1) 11/26/2024 Generalized anxiety disorder (ICD-10 - F41.1) 11/26/2024 Post depression (ICD-10 - F53.0) 08/13/2024 Post depression (ICD-10 - F53.0) 08/13/2024 Medication side effect (ICD-10 - T88.7XXA) [...] psychiatric follow-up over the phone located in [place]. Previously seen on 08/13/2024 and during this [...] or be administered own oral medications per [facility] protocols. Provided informed consent with understanding of side effects, adverse effects, risks and benefits as well as alternative treatments as previously discussed and with the above recommended medications & other aspects of the treatment program. Agrees to return sooner if symptoms worsen or suicidal or homicidal ideations occur. 08/13/2024 Panic disorder (ICD-10 - F41.0) History: Hx of psychiatric inpatient stays 2016 for SI, 2019 crisis unit for SI. [...] psychiatric follow-up over the phone located in [place]. Previously seen on 06/18/2024 and during this [...] currently prescribed. Reviewed supplements, advised to avoid Anacoco's wort if in any compounds. Unable to complete AIMS due to the nature of the appointment. Encouraged to continue therapy. No acute safety concerns at the time of appointment. Pt was given the opportunity to ask questions and is in agreement with treatment plan. May self-administer medications or be administered own oral medications per [facility] protocols. Provided informed consent with understanding of [...] Insured Coverage Start Date Coverage End Date [employer] [address] [place] [address] [id number] Toyin Tian Self - patient is the insured 3 4 [employer] [address] [place] [address] [id number] Toyin Tian Self - patient is the insured 3 4 Medical (General) History Medical History History ICD Code Back pain due to injury S39.92XA Migraines G43.909 Surgical History Surgery Date(Month/Year) Denies Hospitalization History Reason Date(Month/Year) pancreatis 2- stays
--- OUTSIDE RECORDS SUMMARY | 2025-07-02 17:41 | XMS_ITS | Encounter Summary ---
Author Organization [facility] Address [address] [facility] [place] [address] Care Team Providers Care Casino Host Name Role Phone Unavailable Primary Care Provider Unavailabl e Encounter Details Date Type Department Care Team (Late st Contact Info) Description 08/04/2023 Lab Requisition [facility] [address] [facility], [place] [address] Renetta Curry PA-C [address] [place] [phone] Melanocytic nevi of trunk; Melanocytic nevi of right upper limb, including shoulder Social History Tobacco Use Types Packs/Day Years Used Date Smoking Tobacco: Never Assessed Comments Unknown Sex and Gender Information Value Date Recorded Sex Assigned at Not on file 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
--- OUTSIDE RECORDS SUMMARY | 2025-07-02 17:41 | XMS_ITS | Clinical Summary ---
Author Organization [facility] Address [address] [facility] [place] [address] Care Team Providers Care Pediatric Pathologist Name Role Phone Unavailable Primary Care Provider Unavailabl e Source Comments [facility],non-owned Affiliates and Associated Physician Practices is amultiple site organization consisting of ambulatory clinics and hospital sitesin [place], [place], [place] and [place]. This disclosure is being madepursuant to the Care Everywhere program and may not contain all information available regarding this patient. 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
--- OUTSIDE RECORDS SUMMARY | 2025-07-02 17:41 | XMS_ITS | Patient Health Record ---
Author Organization [facility] Address [address] [place] [address] Care Team Providers Care International Student Advisor Name Role Phone Yonathan Bean Unavailable [phone] Reason For Referral No Information Medications Medication SIG (Take, Route, Frequency, Duration) Notes Start Date End Date Status lamoTRIgine 25 MG Oral 08/14/2020 A ctive busPIRone HCl 7.5 MG Oral 08/14/2020 Active Lidocaine 5% External 08/14/2020 Active ONDANSETRON HYDROCHLORIDE 4 MG TABS *Reorder from [facility] for eRx and Interaction Alerts* 08/14/2020 Active cloNIDine HCl 0.1 MG Oral 08/14/2020 Active ARIPiprazole 5 MG Oral 08/14/2020 A ctive FLUCONAZOLE 150 MG TABS *Reorder from [facility] for eRx and Interaction Alerts* 08/14/2020 Active metroNIDAZOLE 0.75 % Vaginal 08/14/2020 Active Rexulti 1 mg Oral 08/14/2020 Active Diclofenac Sodium 1% Transdermal 08/14/2020 Active BUT/APAP/CAF TAB *[facility] for eRx and Interaction Alerts* 08/14/2020 Active Venlafaxine HCl ER 75 MG Oral 08/14/2020 Active Escitalopram Oxalate 20 MG Oral 08/14/2020 Active Qkcgzvuzxf-QCRO-Nukkf ine 50-325-40 MG Oral 08/14/2020 Active ARIPiprazole 15 MG Oral 08/14/2020 Active clonazePAM 0.5 MG Oral 08/14/2020 A ctive Pirmella 1/35 1-35 MG-MCG Oral 08/14/2020 Active Ibuprofen 800 MG Oral 08/14/2020 Ac tive traMADol HCl 50 MG Oral 08/14/2020 Active Plan Of Treatment No Information Insurance Providers Payer Name Payer Address Payer Phone Subscriber Number Group Number Insured Name Patient Relationship to Insured Coverage Start Date Coverage End Date [facility] [address] [address] [place] [address] [id number] ARIEL REES Natural Child - Insured has Financial Responsibility
--- OUTSIDE RECORDS SUMMARY | 2025-07-02 17:41 | XMS_ITS | Continuity of Care Document ---
Author Organization [facility] [place] [address] [place] [address] Phone Care Team Providers Care Data Entry Technician Name Role Phone Forman OD, Fredy Unavailable Unavailable Procedures Procedure Date Eye Exam Established Pt Contact Lens Check CL Replacement - Vistakon Disp W/BW Soft Tax - Medical Contact Lens Check Eye Exam, New Patient Refraction Advance Directives Directive Yes / No Effective Date File Name No Information Encounters Encounter Description Practice Location Reason(s) For Visit Diagnoses Date Provider Providers Copied on Encounter [facility], [address] [place] [address] [address], [place], [place], [id number], [place] tel:[phone] SEC [facility] No Information 9-201 0 Forman OD Fredy. [address] , [address], [place], [address], [place]. tel:[phone] [facility], [address], [place], [place], [id number], [place] tel:[phone] SEC [facility] No Information 5-200 9 Forman OD Fredy. [address] , [address], [place], [address], [place]. tel:[phone] [facility], [address], [place], [place], [id number], [place] tel:[phone] [facility] No Information Oct-0 8-200 9 Forman OD Fredy. [address] , [address], [place], [address], [place]. tel:[phone] [facility], [address] [facility] [address], [place], [place], [id number], tel:[phone] [facility] No Information Oct-0 1-200 9 Forman OD Fredy. [address] , [address], [place], [address], [place]. tel:[phone] Family History Family Member Type Diagnosis Age At Onset No Information Payers Payer name Insurance type Covered constitution party ID Authoriza tion(s) No Information Social [...]
--- OUTSIDE RECORDS SUMMARY | 2025-07-02 17:41 | XMS_ITS | Clinical Summary ---
Author Organization 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 Gender Identity Not on file Sexual Orientation [...] Health Maintenance Due Date Last Done Comments HPV VACCINES (1 - 3-dose series) 2010 DTAP/TDAP/TD VACCINES (1 - Tdap) 2014 HEPATITIS B VACCINES (1 of 3 - 19+ 3-dose series) 09/28 CERVICAL CANCER SCREENING 2016 HPV/Cotest (21-29) 2016 PAP SMEAR 2016 INFLUENZA VACCINE (#1) 2025 Insurance [employer] [place] Advance Directives For more information, please contact: [phone] * Full Code (Latest Code Status on File) Date Activated Date Inactivated Comments 08/12/2016 11:20 PM 08/15/2016 1:55 PM Care Teams Line Installer Trolley Relationship Specialty Start Date End Date (Excluded Provider) Arnol Phillip MD [address] [address] PCP - General Pediatrics 06/01/21
--- OUTSIDE RECORDS SUMMARY | 2025-07-02 17:41 | XMS_ITS | Encounter Summary ---
Author Organization [facility] Address 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
[2025-07-02 17:59] LABS: Hematocrit 36.5 % (37.0-47.0); Hemoglobin 12.6 g/dL (12.0-15.0); Mean Corpuscular HGB Conc 34.5 g/dl (32-36); Mean Corpuscular Hemoglobin 31.2 pg (26-34); Mean Corpuscular Volume 90.3 fl (80-100); Platelet Count Result 233 k/mm3 (150-375); Red Blood Count 4.04 M/mm3 (4.2-5.4); White Blood Count 8.0 K/mm3 (4.5-10.0)
[2025-07-02 18:52] LABS: Syphilis IgG/IgM Antibody Non-Reactive (Nonreactive)
[2025-07-02 18:56] LABS: HIV 1/2 Ab P24 Ag Result Negative (Negative)
[2025-07-02 18:58] LABS: Hepatitis B Surface Antigen Negative (Negative)
[2025-07-04 06:08] LABS: Cytomegalovirus (CMV) Ab, IgG <0.60 U/mL (0.00-0.59)
[2025-07-04 07:09] LABS: Varicella-Zoster Ab, IgG Reactive (Non Reactive)
[2025-07-07 13:08] LABS: Parvovirus B19, IgG 7.1 index (0.0-0.8); Parvovirus B19, IgM 0.3 index (0.0-0.8)
== END 2025-07-02 17:38 | disposition home or self-care (01) ==
LOC: ANHLAB 17:39
PROVIDERS: PCP Family Medicine; Visit Provider Student in an Organized Health Care Education/Training Program
DX: Z34.90 Encounter for supervision of normal pregnancy, unspecified, unspecified trimester (principal); Z3A.00 Weeks of gestation of pregnancy not specified
CPT/HCPCS: 36415; 85027; 86593; 86644; 86703; 86747; 86762; 86787; 86850; 86900; 86901; 87086; 87340; G0432

== ENCOUNTER 2025-10-05 09:56 | Observation (INO) | payer OTHER, SELFPAY ==
[2025-10-05 10:10] VITALS: TEMP 36.3
[2025-10-05 10:16] VITALS: BMI 26.5
[2025-10-05 10:53] LABS: Add Urine Microscopic? YES; Appearance Urine Cloudy (Clear); Glucose Urine UA Negative (Negative); Leukocyte Esterase Ur Trace LEU/UL (Negative); Nitrate Urine Negative (Negative); Non Pathogenic Casts 0-2; Specific Grav Ur 1.017 (1.001-1.035)
[2025-10-05] MEDS: ACETAMINOPHEN 500 MG TABLET 1000 MG PO (12:15)
[2025-10-05] MEDS: DEXTROSE 5%/0.45% SOD CHL 1,000 ML 999 ML IV CONT (12:34)
[2025-10-05 12:49] LABS: Hematocrit 35.8 % (37.0-47.0); Hemoglobin 12.3 g/dL (12.0-15.0); Mean Corpuscular HGB Conc 34.4 g/dl (32-36); Mean Corpuscular Hemoglobin 32.9 pg (26-34); Mean Corpuscular Volume 95.7 fl (80-100); Platelet Count Result 192 k/mm3 (150-375); Red Blood Count 3.74 M/mm3 (4.2-5.4); White Blood Count 7.8 K/mm3 (4.5-10.0)
[2025-10-05 13:08] LABS: Alanine Aminotransferase 9 U/L (6-35); Albumin Level 3.7 g/dL (3.5-5.1); Alkaline Phosphatase 61 U/L (38-126); Anion Gap 3 mmol/L (4-12); Aspartate Amino Transferase 18 U/L (14-36); Bilirubin,Total 0.4 mg/dL (0.2-1.3); Blood Urea Nitrogen 6 mg/dL (7-17); Calcium 8.6 mg/dL (8.4-10.2); Carbon Dioxide 24 mmol/L (22-30); Chloride 105 mmol/L (98-107); Estimated CRCL calculation 127 ml/min; Estimated Glomerular Filt Rate > 60; Glucose 79 mg/dL (65-110); Potassium 3.7 mmol/L (3.4-5.0); Sodium 132 mmol/L (137-145); Total Protein 6.6 g/dL (6.3-8.2)
--- NOTE | 2025-10-05 13:53 | PC.NURSE ---
Dr. Dumont called to check on pt. Informed of CBC and CMP results. Pt still having the right lower abdomen pain continuously. Doesn't worsen or improve with rest or activity. No rebound tenderness. No uterine tenderness upon palpation. Pt had a BM yesterday. No nausea or vomiting. IV fluids still infusing. OK to discharge to home when IV fluids are finished.
--- NOTE | 2025-10-05 14:21 | OBADM ---
This patient, Toyin Tian, admitted to the OB room 116 for observation. Patient/family oriented to hospital policies and general routines including ID bracelet, bed and alarms, visiting hours, pain management, procedures, bathroom and other care routines, personal items, smoking policy, room service/diet, and visiting hours. Patient/Family are encouraged to report perceived risks to care and to ask questions if they do not understand what they are told or what they should do.
--- NOTE | 2025-10-22 09:22 | PM.OBTRLD ---
OB - Triage/Final Diagnosis Visit Information Comments/Additional reasons for admission: I have assessed the risk for this patient, Toyin Tian, and determined that she would benefit from observation care. Evaluation Laboratory results: Laboratory Tests 10/05/25 10/05/25 10:33 12:36 WBC 7.8 RBC 3.74 L Hgb 12.3 Hct 35.8 L MCV 95.7 MCH 32.9 MCHC 34.4 RDW 12.6 Plt Count 192 MPV 10.8 H Sodium 132 L Potassium 3.7 Chloride 105 Carbon Dioxide 24 Anion Gap 3 L BUN 6 L Creatinine 0.51 L Estim Creat Clear Calc 127 Estimated GFR > 60 Glucose 79 Calcium 8.6 Total Bilirubin 0.4 AST 18 ALT 9 Alkaline Phosphatase 61 Total Protein 6.6 Albumin 3.7 Urine Color Yellow Urine Appearance Cloudy H Urine pH 7.0 Ur Specific Raymond 1.017 Urine Protein Negative Urine Glucose (UA) Negative Urine Ketones Negative Ur Blood (Man) Negative Urine Nitrate Negative Urine Bilirubin Negative Urine Urobilinogen 0.2 Leukocyte Esterase Rfl Trace H Urine RBC 0-2 Urine WBC 0-5 Ur Squamous Epith Cells None seen Urine Bacteria None seen Urine Casts 0-2 Final Diagnosis (1) Abdominal pain affecting : Code(s): O26.899 - Other specified related conditions, unspecified trimester; R10.9 - Unspecified abdominal pain Status: Acute
== END 2025-10-05 14:13 | disposition home or self-care (01) ==
PROVIDERS: Admitting Provider Obstetrics & Gynecology; PCP Family Medicine; Visit Provider Obstetrics & Gynecology
DX: O26.892 Other specified pregnancy related conditions, second trimester (principal); R10.9 Unspecified abdominal pain; Z3A.24 24 weeks gestation of pregnancy
CPT/HCPCS: 36415; 80053; 81001; 85027; 96365; A9270; G0378; G0379

== ENCOUNTER 2025-11-10 11:15 | Outpatient (CLI) | payer OTHER, SELFPAY ==
[2025-11-10 18:49] LABS: Hematocrit 36.5 % (37.0-47.0); Hemoglobin 12.5 g/dL (12.0-15.0); Mean Corpuscular HGB Conc 34.2 g/dl (32-36); Mean Corpuscular Hemoglobin 32.6 pg (26-34); Mean Corpuscular Volume 95.3 fl (80-100); Platelet Count Result 197 k/mm3 (150-375); Red Blood Count 3.83 M/mm3 (4.2-5.4); White Blood Count 8.5 K/mm3 (4.5-10.0)
[2025-11-10 18:53] LABS: Glucose 1 Hour PP 50gm Dose 93 mg/dL
[2025-11-10 19:25] LABS: Syphilis IgG/IgM Antibody Non-Reactive (Nonreactive)
[2025-11-10 19:34] LABS: HIV 1/2 Ab P24 Ag Result Negative (Negative)
== END 2025-11-10 11:16 | disposition home or self-care (01) ==
LOC: ANHGOSHLAB 11:16
PROVIDERS: PCP Student in an Organized Health Care Education/Training Program; Visit Provider Obstetrics & Gynecology
DX: Z34.90 Encounter for supervision of normal pregnancy, unspecified, unspecified trimester (principal); Z3A.00 Weeks of gestation of pregnancy not specified
CPT/HCPCS: 36415; 82947; 85027; 86593; 86703; G0432